=== PATIENT | male | born 1960 | race Caucasian/White ===

== ENCOUNTER 2017-06-02 09:26 | Emergency (ER) | payer SELFPAY ==
[2017-06-02] MEDS ORDERED: VERSED 5 MG/5 ML ONE ×2 (09:31→11:10)
[2017-06-02] MEDS ORDERED: EPINEPHRINE 1MG/ML AMP ONE (09:32)
[2017-06-02] MEDS ORDERED: CALCIUM CHLORIDE 10% 1000 MG IV ONE (09:33)
[2017-06-02] MEDS ORDERED: VERSED 5 MG/5 ML IV ONE ×3 (09:34→11:07)
[2017-06-02] MEDS ORDERED: SODIUM BICARBONATE 50 MEQ/50 ML ABBOJECT IV ONE (09:35)
[2017-06-02] MEDS ORDERED: Sodium Chloride 0.9% 250 ML 250 ML IV ONE ×2 (09:35→09:44)
[2017-06-02] MEDS ORDERED: Sodium Chloride 0.9% 1000 ML 1,000 ML IV STA ×2 (09:36→09:40)
[2017-06-02 09:37] LABS: Mean Cell Volume 99.6 fl (78-100); Mean Corpuscular Hemoglobin 32.8 pg (26-32); Mean Platelet Volume 10.6 fl (6-9.5); Platelet Count 147 K/mm3 (150-450); Red Blood Count 5.15 M/mm3 (4.1-5.6); Red Cell Distribution Width 13.8 % (11.5-14.0)
[2017-06-02] MEDS ORDERED: Versed 50 MG/ 10 Ml MDV ONE (09:44)
[2017-06-02] MEDS ORDERED: Sodium Chloride 0.9% 1000 ML 2,000 ML ONE (09:44)
[2017-06-02] MEDS ORDERED: Versed 50 MG/ 10 Ml MDV*** 50 MG in Sodium Chloride 0.9% 250 ML 240 ML IV PRN (09:49)
[2017-06-02] MEDS ORDERED: Vancomycin 1GM/ Ns 250ML*** 250 ML IV ONE ×2 (10:01→10:04)
[2017-06-02] MEDS ORDERED: Zosyn 3.375GM/100 Ml D5W 3.375 GM/100 ML IVPB IV STA (10:01)
[2017-06-02] MEDS ORDERED: Zosyn 3.375GM/100 Ml D5W 3.375 GM/100 ML IVPB IV ONE (10:04)
[2017-06-02 10:06] LABS: INR 1.1 (0.8-3.0); PROTIME 12.2 SECONDS (8.83-12.87)
[2017-06-02 10:06] LABS: BAND 17 % (0.0-2.0); Basophil 1 % (0.0-1.0); Eosinophil 2 % (0.00-3.0); Total Cells Counted 100
[2017-06-02 10:08] LABS: Platelet Estimate DECREASED (NORMAL)
[2017-06-02 10:09] LABS: PTT 46.6 SECONDS (24.1-36.1)
[2017-06-02 10:14] LABS: ALBUMIN 3.1 g/dL (3.4-5.0); BILIRUBIN,TOTAL 0.4 mg/dL (0.2-1.0); Total Protein 6.6 gm/dL (6.4-8.2)
[2017-06-02 10:22] LABS: ANION GAP 21.6 MEQ/L (5-15); Carbon Dioxide 17.5 mEq/L (21-32)
[2017-06-02 10:23] LABS: Potassium 2.8 mEq/L (3.5-5.1)
[2017-06-02] MEDS ORDERED: SUBLIMAZE 100 MCG/2 ML IV ONE ×2 (10:25→11:06)
[2017-06-02] MEDS ORDERED: POTASSIUM CHLORIDE 20 mEq IN WATER 100ML 100 ML IV ONE ×2 (10:25→10:27)
[2017-06-02 10:26] LABS: VBG BASE EXCESS -16.1 (-2.0-2.0); VBG HCO3- 20.4 meq/L (22-28); VBG HEMOGLOBIN 17.3; VBG O2 SATURATION 31.3 (95-100); VBG POTASSIUM 7.1 (3.5-5.1); VBG pH 6.88 (7.32-7.42)
[2017-06-02 10:27] LABS: Lactic Acid 8.4 (0.4-2.0)
[2017-06-02] MEDS ORDERED: SUBLIMAZE 100 MCG/2 ML ONE ×2 (10:27→11:10)
[2017-06-02 10:29] LABS: A-aADO2 213; ARTERIAL BLD GAS O2 SATURATION 98.1 % (95-100); ARTERIAL BLOOD GAS BASE EXCESS -15.7 (-2.0-2.0); ARTERIAL BLOOD GAS FIO2 100 %; ARTERIAL BLOOD GAS PO2 440 mmHg (75-100)
[2017-06-02 10:30] LABS: ARTERIAL BLOOD GAS pH 7.08 (7.35-7.45)
--- NOTE | 2017-06-02 10:46 | ERPHSYRPT ---
- History of Present Illness Time Seen by Provider: 06/02/17 09:31 Source: family, EMS Physician History: CC: cardiac arrest Hx: 56 y/o patient with no chronic illness and no local doctor. He has complained of epigastric abd pain for one year, unchanged. He was at home, got up to walk acroos living room, stated did not feel well, went back to love seat and collapsed. EMS was called. No fall or injury. Ex tried to put on floor for CPR but struggled to move him. On EMS arrival he had Vfib arrest. EMS had prolonged resuscitation with CPR, intubation, multi defib shocks (7-8), multiple epi, lidocaine, amiodarone, mag sulfate, narcan, IVF. Sugar was ok. He had left humeral IO. Converted to PEA while pulling into the ER. He lives at home with exwife. He has no hx of cardiac problems. Drank 3 beer yesterday. Remote drug use but none recent. Allergies/Adverse Reactions: UNOBTAINABLE Allergy (Unverified 11/27/14 21:59) Home Medications: Unobtainable [Unobtainable] 11/27/14 [History] Hx Tetanus, Diphtheria Vaccination/Date Given: No Hx Influenza Vaccination/Date Given: No Hx Pneumococcal Vaccination/Date Given: No - Review of Systems Respiratory: No Dyspnea Cardiac: No Chest Pain Abdominal/Gastrointestinal: No Vomiting, No Diarrhea All Other Systems: Unable due to condition - Past Medical History Pertinent Past Medical History: No - Past Surgical History Past Surgical History: No (UNKNOWN) - Social History Smoking Status: Current every day smoker How long have you smoked: 1 Exposure to second hand smoke: Yes Drug Use: marijuana Patient Lives Alone: No - Physical Exam General Appearance: other (arrived unrepsonsive with mid sized pupils) Ears, Nose, Throat Exam: moist mucous membranes Neck Exam: normal inspection Respiratory Exam: lungs clear (bilateral breath sounds with PPV) Extremity Exam: normal inspection Neurologic Exam: other (no volitional movement) Skin Exam: other (initially mottled, warm) - Radiology Exams cxr X-ray Interpretation: Reviewed by me (ETT ok, no PNTX) Ordered Tests: Active Orders 24 hr Category Date Time Status Catheter-[place] STAT Care 06/02/17 09:36 Active EKG-ER Only STAT Care 06/02/17 09:36 Active IV Insertion STAT Care 06/02/17 09:36 Active CHEST 1 VIEW (PORTABLE) Stat Exams 06/02/17 09:38 Taken ARTERIAL BLOOD GASES Stat Lab 06/02/17 09:48 Completed BLOOD CULTURE Stat Lab 06/02/17 09:45 Received CBC W DIFF Stat Lab 06/02/17 09:20 Results CMP Stat Lab 06/02/17 09:20 Completed ETHYL ALCOHOL Stat Lab 06/02/17 09:50 Completed LIPASE Stat Lab 06/02/17 09:20 Completed Lactic Acid Stat Lab 06/02/17 09:20 Results Manual Differential NC Stat Lab 06/02/17 09:20 Results PROTIME WITH INR Stat Lab 06/02/17 09:50 Completed PTT Stat Lab 06/02/17 09:50 Completed Pathologist Review Stat Lab 06/02/17 09:20 Results TROPONIN Q3H Lab 06/02/17 09:45 Completed TROPONIN Q3H Lab 06/02/17 12:45 Ordered TROPONIN Q3H Lab 06/02/17 15:45 Ordered TROPONIN Q3H Lab 06/02/17 18:45 Ordered TROPONIN Q3H Lab 06/02/17 21:45 Ordered UA W/RFX UR CULTURE Stat Lab 06/02/17 10:15 Received Urine Triage Profile Stat Lab 06/02/17 09:38 Ordered VENOUS BLOOD GAS Stat Lab 06/02/17 09:20 Completed Medication Summary Generic Name Dose Route Start Last Admin Trade Name Freq PRN Reason Stop Dose Admin Sodium Chloride 1,000 mls @ 999 mls/hr 06/02/17 09:40 Sodium Chloride 0.9% 1000 Ml IV 06/02/17 10:40 .Q1H1M STA Vancomycin HCl 250 mls @ 167 mls/hr 06/02/17 10:01 Vancomycin 1gm/ Ns 250ml IV 06/02/17 11:30 STAT ONE Potassium Chloride 100 mls @ 50 mls/hr 06/02/17 10:25 Potassium Chloride 20 Meq In Water 100ml IV 06/02/17 12:24 STAT ONE Midazolam HCl 50 mg/ Sodium 250 mls @ 20 mls/hr 06/02/17 09:49 Chloride IV 07/02/17 09:48 .[id number] PRN SEDATION Protocol 4 MG/HR Discontinued Medications Generic Name Dose Route Start Last Admin Trade Name Freq PRN Reason Stop Dose Admin Calcium Chloride 1,000 mg 06/02/17 09:33 Calcium Chloride 10% 1000 Mg IV 06/02/17 09:34 STAT ONE Epinephrine HCl Confirm 06/02/17 09:32 Epinephrine 1mg/Ml Amp Administered 06/02/17 09:33 Dose 1 mg .ROUTE .STK-MED ONE Fentanyl Citrate 100 mcg 06/02/17 10:25 Sublimaze 100 Mcg/2 Ml IV 06/02/17 10:26 STAT ONE Fentanyl Citrate Confirm 06/02/17 10:27 Sublimaze 100 Mcg/2 Ml Administered 06/02/17 10:28 Dose 100 mcg .ROUTE .STK-MED ONE Sodium Chloride Confirm 06/02/17 09:35 Sodium Chloride 0.9% 250 Ml Administered 06/02/17 09:36 Dose 250 mls @ ud IV .STK-MED ONE Sodium Chloride 1,000 mls @ 999 mls/hr 06/02/17 09:36 Sodium Chloride 0.9% 1000 Ml IV 06/02/17 10:36 .Q1H1M STA Sodium Chloride Confirm 06/02/17 09:44 Sodium Chloride 0.9% 1000 Ml Administered 06/02/17 09:45 Dose 2,000 mls @ ud .ROUTE .STK-MED ONE Sodium Chloride Confirm 06/02/17 09:44 Sodium Chloride 0.9% 250 Ml Administered 06/02/17 09:45 Dose 250 mls @ ud IV .STK-MED ONE Piperacillin Sod/Tazobactam Sod 3.375 gm in 100 mls @ 200 mls/hr 06/02/17 10: 01 06/02/17 10:08 Zosyn 3.375gm/100 Ml D5w IV 06/02/17 10:30 200 mls/hr STAT STA Administration Piperacillin Sod/Tazobactam Sod Confirm 06/02/17 10:04 Zosyn 3.375gm/100 Ml D5w Administered 06/02/17 10:05 Dose 3.375 gm in 100 mls @ ud IV .STK-MED ONE Vancomycin HCl Confirm 06/02/17 10:04 Vancomycin 1gm/ Ns 250ml Administered 06/02/17 10:05 Dose 250 mls @ ud IV .STK-MED ONE Potassium Chloride Confirm 06/02/17 10:27 Potassium Chloride 20 Meq In Water 100ml Administered 06/02/17 10:28 Dose 100 mls @ ud IV .STK-MED ONE Midazolam HCl Confirm 06/02/17 09:31 Versed 5 Mg/5 Ml Administered 06/02/17 09:32 Dose 5 mg .ROUTE .STK-MED ONE Midazolam HCl Confirm 06/02/17 09:44 Versed 50 Mg/ 10 Ml Mdv Administered 06/02/17 09:45 Dose 50 mg .ROUTE .STK-MED ONE Midazolam HCl 2.5 mg 06/02/17 09:34 Versed 5 Mg/5 Ml IV 06/02/17 09:35 STAT ONE Sodium Bicarbonate 50 meq 06/02/17 09:35 Sodium Bicarbonate 50 Meq/50 Ml Abboject IV 06/02/17 09:36 STAT ONE Lab/Rad Data: Laboratory Result Diagrams 06/02/17 09:20 06/02/17 09:20 Laboratory Results 06/02/17 06/02/17 06/02/17 Range/Units 09:50 09:50 09:48 WBC (4.0-10.5) K/mm3 RBC (4.1-5.6) M/mm3 Hgb (12.5-18.0) gm/dl Hct (42-50) % MCV (78-100) fl MCH (26-32) pg MCHC (32-36) g/dl RDW (11.5-14.0) % Plt Count (150-450) K/mm3 MPV (6-9.5) fl Segmented Neutrophils (36.-66.) % Band Neutrophils (0.0-2.0) % Lymphocytes (Manual) (24-44) % Monocytes (Manual) (0.0-12.0) % Eosinophils (Manual) (0.00-3.0) % Basophils (Manual) (0.0-1.0) % Differential Comment Platelet Estimate (NORMAL) Smear Path Review INR 1.10 (0.8-3.0) APTT 46.6 H (24.1-36.1) SECONDS Puncture Site LEFT RADIAL pCO2 48 H (35-45) mmHg pO2 440 H* (75-100) mmHg Base Excess -15.7 L (-2.0-2.0) O2 Saturation 94.6 (94-100) g/dF ABG pH 7.08 L* (7.35-7.45) ABG HCO3 14.2 L* (22-28) ABG O2 Sat (Measured) 98.1 (95-100) % Dain Test NOT APPLICABLE VBG pH (7.32-7.42) VBG pCO2 at Pat Temp (42-55) mm/Hg VBG pO2 at Pat Temp (25-40) mm/Hg VBG HCO3 (22-28) meq/L VBG O2 Sat (Imtiaz) (95-100) VBG Base Excess (-2.0-2.0) VBG Hemoglobin VBG Carboxyhemoglobin (0.0-6.9) % T HGB A-a Gradient 213 a/A Ratio 0.67 Hemoglobin 14.2 Carboxyhemoglobin 3.6 (0.0-6.9) % THgb Methemoglobin 0.0 L (1.4-1.5) % POC Potassium (3.5-5.1) Temperature 37.0 C POC O2 Flow Rate 100 % Sodium (136-145) mEq/L Potassium 3.0 L (3.5-5.1) mEq/L Chloride (98-107) mEq/L Carbon Dioxide (21-32) mEq/L Anion Gap (5-15) MEQ/L BUN (9-20) mg/dL Creatinine (0.55-1.30) mg/dl Estimated GFR ML/MIN Glucose (70-110) MG/DL Lactic Acid (0.4-2.0) Calcium (8.5-10.1) mg/dL Total Bilirubin (0.2-1.0) mg/dL AST (15-37) U/L ALT (12-78) U/L Alkaline Phosphatase (46-116) U/L Troponin I (0.000-0.056) ng/ml Serum Total Protein (6.4-8.2) gm/dL Albumin (3.4-5.0) g/dL Lipase (73-393) U/L Ethyl Alcohol < 0.010 (0.00-0.01) % 06/02/17 06/02/17 06/02/17 Range/Units 09:45 09:20 09:20 WBC (4.0-10.5) K/mm3 RBC (4.1-5.6) M/mm3 Hgb (12.5-18.0) gm/dl Hct (42-50) % MCV (78-100) fl MCH (26-32) pg MCHC (32-36) g/dl RDW (11.5-14.0) % Plt Count (150-450) K/mm3 MPV (6-9.5) fl Segmented Neutrophils (36.-66.) % Band Neutrophils (0.0-2.0) % Lymphocytes (Manual) (24-44) % Monocytes (Manual) (0.0-12.0) % Eosinophils (Manual) (0.00-3.0) % Basophils (Manual) (0.0-1.0) % Differential Comment Platelet Estimate (NORMAL) Smear Path Review INR (0.8-3.0) APTT (24.1-36.1) SECONDS Puncture Site pCO2 (35-45) mmHg pO2 (75-100) mmHg Base Excess (-2.0-2.0) O2 Saturation (94-100) g/dF ABG pH (7.35-7.45) ABG HCO3 (22-28) ABG O2 Sat (Measured) (95-100) % Dain Test VBG pH 6.88 L* (7.32-7.42) VBG pCO2 at Pat Temp 109 H* (42-55) mm/Hg VBG pO2 at Pat Temp 24 L (25-40) mm/Hg VBG HCO3 20.4 L (22-28) meq/L VBG O2 Sat (Imtiaz) 31.3 L (95-100) VBG Base Excess -16.1 L (-2.0-2.0) VBG Hemoglobin 17.3 VBG Carboxyhemoglobin 4.0 (0.0-6.9) % T HGB A-a Gradient a/A Ratio Hemoglobin Carboxyhemoglobin (0.0-6.9) % THgb Methemoglobin (1.4-1.5) % POC Potassium 7.1 H* (3.5-5.1) Temperature C POC O2 Flow Rate % Sodium (136-145) mEq/L Potassium (3.5-5.1) mEq/L Chloride (98-107) mEq/L Carbon Dioxide (21-32) mEq/L Anion Gap (5-15) MEQ/L BUN (9-20) mg/dL Creatinine (0.55-1.30) mg/dl Estimated GFR ML/MIN Glucose (70-110) MG/DL Lactic Acid 8.4 H (0.4-2.0) Calcium (8.5-10.1) mg/dL Total Bilirubin (0.2-1.0) mg/dL AST (15-37) U/L ALT (12-78) U/L Alkaline Phosphatase (46-116) U/L Troponin I 0.141 H* (0.000-0.056) ng/ml Serum Total Protein (6.4-8.2) gm/dL Albumin (3.4-5.0) g/dL Lipase (73-393) U/L Ethyl Alcohol (0.00-0.01) % 06/02/17 06/02/17 Range/Units 09:20 09:20 WBC 10.0 (4.0-10.5) K/mm3 RBC 5.15 (4.1-5.6) M/mm3 Hgb 16.9 (12.5-18.0) gm/dl Hct 51.3 H (42-50) % MCV 99.6 (78-100) fl MCH 32.8 H (26-32) pg MCHC 32.9 (32-36) g/dl RDW 13.8 (11.5-14.0) % Plt Count 147 L (150-450) K/mm3 MPV 10.6 H (6-9.5) fl Segmented Neutrophils 16 L (36.-66.) % Band Neutrophils 17 H (0.0-2.0) % Lymphocytes (Manual) 58 H (24-44) % Monocytes (Manual) 6 (0.0-12.0) % Eosinophils (Manual) 2 (0.00-3.0) % Basophils (Manual) 1 (0.0-1.0) % Differential Comment NORMAL Platelet Estimate DECREASED (NORMAL) Smear Path Review Pending INR (0.8-3.0) APTT (24.1-36.1) SECONDS Puncture Site pCO2 (35-45) mmHg pO2 (75-100) mmHg Base Excess (-2.0-2.0) O2 Saturation (94-100) g/dF ABG pH (7.35-7.45) ABG HCO3 (22-28) ABG O2 Sat (Measured) (95-100) % Dain Test VBG pH (7.32-7.42) VBG pCO2 at Pat Temp (42-55) mm/Hg VBG pO2 at Pat Temp (25-40) mm/Hg VBG HCO3 (22-28) meq/L VBG O2 Sat (Imtiaz) (95-100) VBG Base Excess (-2.0-2.0) VBG Hemoglobin VBG Carboxyhemoglobin (0.0-6.9) % T HGB A-a Gradient a/A Ratio Hemoglobin Carboxyhemoglobin (0.0-6.9) % THgb Methemoglobin (1.4-1.5) % POC Potassium (3.5-5.1) Temperature C POC O2 Flow Rate % Sodium 147 H (136-145) mEq/L Potassium 2.8 L* (3.5-5.1) mEq/L Chloride 111 H (98-107) mEq/L Carbon Dioxide 17.5 L (21-32) mEq/L Anion Gap 21.6 H (5-15) MEQ/L BUN 11 (9-20) mg/dL Creatinine 1.42 H (0.55-1.30) mg/dl Estimated GFR 55 ML/MIN Glucose 257 H (70-110) MG/DL Lactic Acid (0.4-2.0) Calcium 8.9 (8.5-10.1) mg/dL Total Bilirubin 0.40 (0.2-1.0) mg/dL AST 118 H (15-37) U/L ALT 109 H (12-78) U/L Alkaline Phosphatase 112 (46-116) U/L Troponin I (0.000-0.056) ng/ml Serum Total Protein 6.6 (6.4-8.2) gm/dL Albumin 3.1 L (3.4-5.0) g/dL Lipase 180 (73-393) U/L Ethyl Alcohol (0.00-0.01) % - Progress Progress Note: 06/02/17 10:48 Pt had femoral pulse present after initial PEA and CPR here. IVF NS bolus given 3L infused. He had initial low pH 6.88 and K 7.1. Ca and Bicarb given for K. Placed on ventilator. EKG shows irregular rhythm, RBBB, abnl qrs. Family here and apprised of condition. He needs critical care and they request [facility]. Called [facility] one call at [phone]. Spoke to Dr Scott hospitalist who accepts transfer to ICU at [facility] at 10: 00. 10:[address] Quevedo and sent EKG and troponin. He plans ICU admission and reassessment. Pt placed on Versed gtt. Fentanyl given. Vent placed. Lab K low so K rider initiated. Hospitalist advised cover with vanco and zosyn. Blood cultures sent. He is breathing spontaneously. Pupils midsized and reactive. Not following commands. Plan transfer to [facility] ICU. Counseled pt/family regarding: lab results, diagnosis, need for follow-up, rad results - Departure Time of Disposition: 10:55 Departure Disposition: Transfer ([facility] ICU) Clinical Impression: Cardiac arrest with ventricular fibrillation Condition: Critical Critical Care Time: Yes Critical Care Time(excluding separately billable procedures): 30-74 minutes
[2017-06-02] MEDS ORDERED: Sodium Chloride 0.9% 1000 ML 1,000 ML ONE (10:57)
[2017-06-02 11:05] LABS: A-aADO2 329; ARTERIAL BLD GAS O2 SATURATION 97.6 % (95-100); ARTERIAL BLD GAS TIDAL VOLUME 700 cc; ARTERIAL BLOOD GAS BASE EXCESS -10.5 (-2.0-2.0); ARTERIAL BLOOD GAS FIO2 80 %; ARTERIAL BLOOD GAS PO2 201 mmHg (75-100); ARTERIAL BLOOD GAS pH 7.28 (7.35-7.45)
[2017-06-02 11:07] LABS: Lactic Acid 3.8 (0.4-2.0)
[2017-06-02 12:43] LABS: Collection Type VOID
[2017-06-02 12:44] LABS: Bilirubin NEGATIVE (NEGATIVE); Blood 250 Ery/ul (0-5); COMPLETE URINE MICROSCOPIC? YES; Glucose 1000 mg/dL (NEGATIVE); Leukocyte Esterase NEGATIVE (NEGATIVE)
[2017-06-02 12:47] LABS: ADD URINE CULTURE? YES (NO); Bacteria FEW /HPF (NEGATIVE); Epithelial Cells FEW /HPF (FEW); WBC 0-2 /HPF (0-5)
[2017-06-02 17:32] VITALS: O2SAT 100
[2017-06-02 17:35] VITALS: BP 136/80; PULSE 94
[2017-06-02] MEDS ORDERED: Sodium Chloride 0.9% 1000 ML 1,000 ML IV SCH (17:45)
--- NOTE | 2017-06-02 20:20 | XRAY ---
Indication: Cardiac arrest. Comparison: November 27, 2014. Portable chest demonstrates new endotracheal tube tip 3 cm above the linh. Again mild bilateral perihilar interstitial opacities without consolidation or large effusion. Heart is not enlarged. Bony thorax intact.
== END 2017-06-02 11:25 | disposition short-term general hospital (02) ==
LOC: ED 09:26
DX: I46.9 Cardiac arrest, cause unspecified (principal); I49.01 Ventricular fibrillation
CPT/HCPCS: 36000; 36415; 36600; 51702; 71010; 80053; 80307; 81000; 82375; 82803; 82805; 83605; 83690; 84484; 85025; 85610; 85730; 87040; 87086; 93005; 93041; 94002; 94003; 94799; 96360; 96365; 96366; 96367; 99291; 99292; G0481; J0171; J2250; J2543; J3010; J3370; J3480

== ENCOUNTER 2021-08-02 15:43 | Emergency (ER) | payer MEDICARE ==
--- NOTE | 2021-08-02 15:51 | ERPHSYRPT ---
- History of Present Illness Time Seen by Provider: 08/02/21 15:51 Source: patient Exam Limitations: no limitations Physician History: This is a 61-year-old obese white male who has been coughing for a few days and is concerned that he may have broken a rib. Patient, in 2017, suffered a cardiac arrest and has a implantable LVAD in the left upper quadrant. Since he has been coughing the pain is significant in the left lower ribs. He does not have anterior chest pain as he had when he had a myocardial infarction. He does have history of diabetes and hypertension. He is on Coumadin. Lab work today shows an INR of 2.22. Patient is on chronic, daily hydrocodone which seems to help his cough. Patient was seen by his primary care physician today. Patient has not had a fever. He does not have any new shortness of breath. He has no nausea vomiting or diarrhea. Timing/Duration: day(s) (Few days) Severity: mild (To moderate tender left lower ribs) Associated Symptoms: No nausea, No vomiting, No abdominal pain, No shortness of breath, No chest pain Allergies/Adverse Reactions: No Known Drug Allergies Allergy (Verified 08/02/21 15:55) Home Medications: Amitriptyline HCl 25 mg [Elavil 25 mg] 1 ea DAILY 08/02/21 [History] Atorvastatin Calcium 1 ea DAILY 08/02/21 [History] Empagliflozin [Jardiance] 1 ea DAILY 08/02/21 [History] HydrALAzine HCL 25 MG TAB [Apresoline 25 MG TABLET] 1 ea DAILY 08/02/21 [History] Hydrocodone/Acetaminophen [Hydrocodone-Acetamin 10-325 mg] 1 ea DAILY 08/02/21 [History] Lisinopril 5 mg [Zestril 5 MG] 1 ea DAILY 08/02/21 [History] Potassium Chloride [K-Dur] 1 ea DAILY 08/02/21 [History] Semaglutide [Ozempic] 1 ea UD 08/02/21 [History] Torsemide 1 ea DAILY 08/02/21 [History] Umeclidinium Brm/Vilanterol Tr [Anoro Ellipta 62.5-25 Mcg INH] 1 ea DAILY 08/02/21 [History] Warfarin Sodium 1 ea DAILY 08/02/21 [History] Hx Tetanus, Diphtheria Vaccination/Date Given: No Hx Influenza Vaccination/Date Given: No Hx Pneumococcal Vaccination/Date Given: No Travel Risk - International Travel Have you traveled outside of the country in past 3 weeks: No - Coronavirus Screening Are you exhibiting any of the following symptoms?: No Close contact with a COVID-19 positive Pt in past 14-21 Days: No - Review of Systems Constitutional: No Symptoms Eyes: No Symptoms Ears, Nose, & Throat: No Symptoms Respiratory: Cough, Other (Left lower rib tenderness when coughing or palpation) Abdominal/Gastrointestinal: No Symptoms Genitourinary Symptoms: No Symptoms Musculoskeletal: No Symptoms Skin: No Symptoms Neurological: No Symptoms Psychological: No Symptoms Endocrine: No Symptoms Hematologic/Lymphatic: No Symptoms Immunological/Allergic: No Symptoms All Other Systems: Reviewed and Negative - Past Medical History Pertinent Past Medical History: Yes Neurological History: No Pertinent History Cardiac History: Myocardial Infarction ([place]) Respiratory History: No Pertinent History Endocrine Medical History: No Pertinent History Musculoskeletal History: Arthritis, Osteoporosis Other Medical History: Pt is poor historian. - Past Surgical History Past Surgical History: Yes (UNKNOWN) - Social History Smoking Status: Current every day smoker How long have you smoked: 1 Exposure to second hand smoke: Yes Drug Use: marijuana Patient Lives Alone: No - Nursing Vital Signs Nursing Vital Signs: Initial Vital Signs Pulse Rate 76 08/02/21 16:46 Respiratory Rate 22 08/02/21 16:46 O2 Sat by Pulse Oximetry 96 08/02/21 16:46 Pain Scale Pain Intensity 8 - Physical Exam General Appearance: no apparent distress, alert, anxiety, obese Eye Exam: PERRL/EOMI, eyes nml inspection Ears, Nose, Throat Exam: normal ENT inspection, moist mucous membranes Neck Exam: normal inspection, non-tender, supple, full range of motion Respiratory Exam: normal breath sounds, lungs clear, airway intact, other (Left lower rib tenderness to palpation no obvious deformity present.), No respiratory distress Cardiovascular Exam: regular rate/rhythm, normal heart sounds, normal peripheral pulses Gastrointestinal/Abdomen Exam: soft, normal bowel sounds, tenderness (To palpation subcostal margin.), other (The site of the implantable LVAD is clean dry and intact without evidence of any infection or abnormality.) Rectal Exam: not done Back Exam: normal inspection, normal range of motion, No CVA tenderness, No vertebral tenderness Extremity Exam: normal inspection, normal range of motion, pelvis stable Neurologic Exam: alert, oriented x 3, cooperative, 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 There is nonspecific IVCD with LAD in place.) Ordered Tests: Active Orders 24 hr Category Date Time Status EKG-ER Only STAT Care 08/02/21 16:21 Active IV Insertion STAT Care 08/02/21 16:21 Active CHEST WITHOUT CONTRAST [CT] Stat Exams 08/02/21 16:13 Completed TROPONIN Q3H Lab 08/02/21 15:55 Completed TROPONIN Q3H Lab 08/02/21 19:15 Ordered TROPONIN Q3H Lab 08/02/21 22:15 Ordered TROPONIN Q3H Lab 08/03/21 01:15 Ordered TROPONIN Q3H Lab 08/03/21 04:15 Ordered Medication Summary Discontinued Medications Generic Name Dose Route Start Last Admin Trade Name Freq PRN Reason Stop Dose Admin Morphine Sulfate 4 mg 08/02/21 16:48 08/02/21 16:58 Morphine Sulfate 4 Mg/Ml Injection IV 08/02/21 16:49 4 mg STAT ONE Administration Morphine Sulfate Confirm 08/02/21 16:57 Morphine Sulfate 4 Mg/Ml Injection Administered 08/02/21 16:58 Dose 4 mg .ROUTE .STK-MED ONE Ondansetron HCl 4 mg 08/02/21 16:48 08/02/21 16:58 Ondansetron Hcl 4 Mg/2 Ml Vial IV 08/02/21 16:49 4 mg STAT ONE Administration Ondansetron HCl Confirm 08/02/21 16:56 Ondansetron Hcl 4 Mg/2 Ml Vial Administered 08/02/21 16:57 Dose 4 mg .ROUTE .STK-MED ONE Lab/Rad Data: Laboratory Results 08/02/21 Range/Units 15:55 Troponin I < 0.012 (0.000-0.034) ng/mL - Progress Progress Note: 08/02/21 17:03 CAT scan of the chest shows no evidence of any acute rib fractures or acute intrathoracic abnormality. Limited left upper quadrant view shows no acute intraabdominal process in this region. Counseled pt/family regarding: lab results, need for follow-up, rad results - Departure Departure Disposition: Home Clinical Impression: Rib pain on left side Condition: Stable Critical Care Time: No Referrals: REMEDIOS MARTIN [Primary Care Provider] - Follow up/PCP as directed Additional Instructions: Continue your hydrocodone as prescribed. Follow-up with your central office inspector for further management.
--- NOTE | 2021-08-02 16:42 | XRAY ---
Indication: Left anterior rib pain. Multiple contiguous axial images obtained through the chest without contrast. Comparison: None Lungs demonstrate mild bilateral dependent atelectasis. No suspicious pulmonary mass/nodule, infiltrate, consolidation, or effusion. Heart not enlarged with previous CABG surgery and a left ventricular assist device producing beam artifact. Also left dual-lead pacemaker. Aorta is minimally arteriosclerotic without aneurysm. No pathologic mediastinal lymphadenopathy. Bony thorax intact with mild osteopenia, mild degenerative changes throughout the spine, and sternotomy wires. No suspicious bony lesions. Limited upper abdomen demonstrates mild diffuse fatty liver and moderate colonic fecal debris. Impression: 1. Beam artifact from LVAD. 2. Osteopenia, multilevel degenerative spondylosis, and fatty liver. 3. Remaining CT chest without contrast exam is negative.
[2021-08-02 16:48] VITALS: PULSE 76
[2021-08-02] MEDS ORDERED: Zofran 4 MG/2 ML VIAL IV ONE (16:48)
[2021-08-02] MEDS ORDERED: MORPHINE SULFATE 4 MG INJ IV ONE (16:48)
[2021-08-02] MEDS ORDERED: Zofran 4 MG/2 ML VIAL ONE (16:56)
[2021-08-02] MEDS ORDERED: MORPHINE SULFATE 4 MG INJ ONE (16:57)
[2021-08-02] MEDS ORDERED: NORCO 5/325 MG PO ONE (17:23)
[2021-08-02 17:24] VITALS: O2SAT 95
[2021-08-02] MEDS ORDERED: NORCO 5/325 MG ONE (17:24)
== END 2021-08-02 17:33 | disposition home or self-care (01) ==
LOC: ED 15:43
DX: R07.81 Pleurodynia (principal); R05.9 Cough, unspecified; Z95.811 Presence of heart assist device; I25.2 Old myocardial infarction; I10 Essential (primary) hypertension; Z72.0 Tobacco use; E11.8 Type 2 diabetes mellitus with unspecified complications; Z79.84 Long term (current) use of oral hypoglycemic drugs; Z79.01 Long term (current) use of anticoagulants; Z79.891 Long term (current) use of opiate analgesic
CPT/HCPCS: 36000; 36415; 71250; 80053; 83615; 83735; 84484; 85025; 85610; 93005; 96374; 96375; 99284; J2270; J2405; A9270-GY

== ENCOUNTER 2021-09-19 13:22 | Emergency (ER) | payer MEDICARE ==
--- NOTE | 2021-09-19 13:56 | ERPHSYRPT ---
- History of Present Illness Time Seen by Provider: 09/19/21 13:40 Source: patient Patient Subjective Stated Complaint: Dizziness Triage Nursing Assessment: Patient brought back to ED via w/c and assisted to bed with assist of 2. Patient A+O X3. Patient's skin pink, warm and dry. Patient complains of dizziness and breaking out in a cold sweat about one hour ago while sitting on the couch. Patient also complains of N/V. Patient has LVAD and called his coordinator and was told to come to ED for eval. Physician History: Patient is a 61-year-old male with a left ventricular assist device presents to our ED with complaints of dizziness and cold sweats that started approximately 1 hour prior to arrival. Patient states he just does not feel well. No chest pain. No nausea or vomiting. Patient states he felt diaphoretic. No rash. Symptoms are constant. Symptoms are moderate in intensity. No specific worsening improving factors. Patient states that he had a heart attack 4 years ago that caused significant left heart damage. Patient called his LVAD coordinator who advised him to come to our ED for an evaluation. Timing/Duration: today Severity: moderate Modifying Factors: Improves With: nothing Associated Symptoms: No abdominal pain, No shortness of breath, No cough, No chest pain, No fever, No loss of appetite, No syncope, No seizure, No weakness Allergies/Adverse Reactions: No Known Drug Allergies Allergy (Verified 09/19/21 13:32) Home Medications: Amitriptyline HCl 25 mg [Elavil 25 mg] 1 ea DAILY 08/02/21 [History] Atorvastatin Calcium 1 ea DAILY 08/02/21 [History] Empagliflozin [Jardiance] 1 ea DAILY 08/02/21 [History] HydrALAzine HCL 25 MG TAB [Apresoline 25 MG TABLET] 1 ea DAILY 08/02/21 [History] Hydrocodone/Acetaminophen [Hydrocodone-Acetamin 10-325 mg] 1 ea DAILY 08/02/21 [History] Lisinopril 5 mg [Zestril 5 MG] 1 ea DAILY 08/02/21 [History] Potassium Chloride [K-Dur] 1 ea DAILY 08/02/21 [History] Semaglutide [Ozempic] 1 ea UD 08/02/21 [History] Torsemide 1 ea DAILY 08/02/21 [History] Umeclidinium Brm/Vilanterol Tr [Anoro Ellipta 62.5-25 Mcg INH] 1 ea DAILY 08/02/21 [History] Warfarin Sodium 1 ea DAILY 08/02/21 [History] Hx Tetanus, Diphtheria Vaccination/Date Given: No Hx Influenza Vaccination/Date Given: Yes Hx Pneumococcal Vaccination/Date Given: No Immunizations Up to Date: Yes Travel Risk - International Travel Have you traveled outside of the country in past 3 weeks: No - Coronavirus Screening Are you exhibiting any of the following symptoms?: No Close contact with a COVID-19 positive Pt in past 14-21 Days: No - Vaccine Status Have you recieved a Covid-19 vaccination: Yes 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 - Review of Systems Constitutional: No Symptoms, No Fever, No Chills Eyes: No Symptoms Ears, Nose, & Throat: No Symptoms Respiratory: No Symptoms, No Cough, No Dyspnea Cardiac: No Symptoms, No Chest Pain, No Edema, No Syncope Abdominal/Gastrointestinal: No Symptoms, No Abdominal Pain, No Nausea, No Vomiting, No Diarrhea Genitourinary Symptoms: No Symptoms, No Dysuria Musculoskeletal: No Symptoms, No Back Pain, No Neck Pain Skin: No Symptoms, No Rash Neurological: No Symptoms, No Dizziness, No Focal Weakness, No Sensory Changes Psychological: No Symptoms Endocrine: No Symptoms Hematologic/Lymphatic: No Symptoms Immunological/Allergic: No Symptoms All Other Systems: Reviewed and Negative - Past Medical History Pertinent Past Medical History: Yes Neurological History: No Pertinent History Cardiac History: Myocardial Infarction (ME) Respiratory History: No Pertinent History Endocrine Medical History: No Pertinent History Musculoskeletal History: Arthritis, Osteoporosis Other Medical History: Pt is poor historian. - Past Surgical History Past Surgical History: Yes (UNKNOWN) Cardiac: Cardiac Catheterization, Cardiac Stent, Internal Defibrillator, Pacemaker Other Surgical History: LVAD - Social History Smoking Status: Former smoker How long have you smoked: 1 Exposure to second hand smoke: Yes Drug Use: none Patient Lives Alone: No - Nursing Vital Signs Nursing Vital Signs: Initial Vital Signs Temperature 95.8 F 09/19/21 13:32 Pulse Rate 67 09/19/21 13:32 Respiratory Rate 18 09/19/21 13:32 Blood Pressure 108/83 09/19/21 13:32 O2 Sat by Pulse Oximetry 95 01/17/22 13:32 Pain Scale Pain Intensity 0 - Physical Exam General Appearance: no apparent distress, alert, other (Patient resting comfortably. Patient sleeping. Patient easily arousable and answers questions appropriately. Patient in no acute distress.) Eye Exam: PERRL/EOMI, eyes nml inspection Ears, Nose, Throat Exam: normal ENT inspection, TMs normal, pharynx normal, moist mucous membranes, other (Dry tongue and dry oral mucous membranes. Patient appears dehydrated) Neck Exam: normal inspection, non-tender, supple, full range of motion Respiratory Exam: normal breath sounds, lungs clear, airway intact, No respiratory distress Cardiovascular Exam: regular rate/rhythm, normal heart sounds, other (Patient has an LVAD. No peripheral pulses observed. Machinelike humming noise observed consistent with LVAD function.) Gastrointestinal/Abdomen Exam: soft, normal bowel sounds, No tenderness, No mass Back Exam: normal inspection, normal range of motion, No CVA tenderness, No vertebral tenderness Extremity Exam: normal inspection, normal range of motion, pelvis stable Neurologic Exam: alert, oriented x 3, cooperative, normal mood/affect, sensation nml, No motor deficits Skin Exam: normal color, warm, dry, No rash Lymphatic Exam: No adenopathy SpO2 Interpretation: normal SpO2: 95 O2 Delivery: Room Air - Course Nursing assessment & vital signs reviewed: Yes EKG Interpreted by Me: RATE (69), Sinus Rhythm, NORMAL AXIS, NORMAL INTERVALS (Patient has an LVAD) - Radiology Exams Chest X-ray Interpretation: Teleradiologist Report (Right lower lobe infiltrate possible atelectasis. Bony thorax intact. LVAD observed.) - CT Exams Head CT Interpretation: Tele-radiologist Report (Continued negative CT head compared to 08/07/2019.) Ordered Tests: Active Orders 24 hr Category Date Time Status [facility] STAT Care 09/19/21 13:41 Active EKG-ER Only STAT Care 09/19/21 13:40 Active IV Insertion STAT Care 09/19/21 13:40 Active Pulse Oximetry (ED) STAT Care 09/19/21 13:40 Active CHEST 1 VIEW (PORTABLE) Stat Exams 09/19/21 13:41 Completed HEAD WITHOUT CONTRAST [CT] Stat Exams 09/19/21 20:00 Taken CBC W DIFF Stat Lab 09/19/21 14:06 Completed CMP Stat Lab 09/19/21 14:06 Completed NT PRO BNP Stat Lab 09/19/21 14:06 Completed POCT GLUCOSE Stat Lab 09/19/21 13:42 Completed TROPONIN Q3H Lab 09/19/21 14:06 Completed TROPONIN Q3H Lab 09/19/21 16:58 Completed TROPONIN Q3H Lab 09/19/21 19:45 Ordered TROPONIN Q3H Lab 09/19/21 22:45 Ordered TROPONIN Q3H Lab 09/20/21 01:45 Ordered UA W/RFX UR CULTURE Stat Lab 09/19/21 20:32 Ordered Medication Summary Discontinued Medications Generic Name Dose Route Start Last Admin Trade Name Freq PRN Reason Stop Dose Admin Vancomycin HCl 1 gm in 200 mls @ 125 mls/hr 09/19/21 15:35 09/19/21 17:55 Vancomycin 1 Gram/200 Ml Bag IV 09/19/21 17:10 Infused STAT ONE Infusion Vancomycin HCl Confirm 09/19/21 16:02 Vancomycin 1 Gram/200 Ml Bag Administered 09/19/21 16:03 Dose 1 gm in 200 mls @ ud IV .STK-MED ONE Potassium Chloride 40 meq 09/19/21 15:30 09/19/21 16:03 Potassium Chloride 10 Meq Tablet PO 09/19/21 15:31 40 meq STAT ONE Administration Potassium Chloride Confirm 09/19/21 16:02 Potassium Chloride 10 Meq Tablet Administered 09/19/21 16:03 Dose 40 meq PO .STK-MED ONE Lab/Rad Data: Laboratory Result Diagrams 09/19/21 14:06 09/19/21 14:06 Laboratory Results 09/19/21 09/19/21 09/19/21 Range/Units 16:58 14:06 14:06 WBC (4.0-10.5) K/mm3 RBC (4.1-5.6) M/mm3 Hgb (12.5-18.0) gm/dl Hct (42-50) % MCV (78-100) fl MCH (26-32) pg MCHC (32-36) g/dl RDW (11.5-14.0) % Plt Count (150-450) K/mm3 MPV (7.5-11.0) fl Gran % (36.0-66.0) % Eos # (Auto) (0-0.5) Absolute Lymphs (auto) (1.0-4.6) Absolute Monos (auto) (0.0-1.3) Lymphocytes % (24.0-44.0) % Monocytes % (0.0-12.0) % Eosinophils % (0.00-5.0) % Basophils % (0.0-0.4) % Absolute Granulocytes (1.4-6.9) Basophils # (0-0.4) Sodium 135 L (137-145) mmol/L Potassium 3.3 L (3.5-5.1) mmol/L Chloride 97 L (98-107) mmol/L Carbon Dioxide 27 (22-30) mmol/L Anion Gap 14.1 (5-15) MEQ/L BUN 20 (9-20) mg/dL Creatinine 1.07 (0.66-1.25) mg/dL Estimated GFR > 60.0 ML/MIN Glucose 147 H (74-106) mg/dL POC Glucometer (74 to 106) mg/dL Calcium 8.9 (8.4-10.2) mg/dL Total Bilirubin 1.00 (0.2-1.3) mg/dL AST 40 (17-59) U/L ALT 42 (0-50) U/L Alkaline Phosphatase 103 (38-126) U/L Troponin I < 0.012 < 0.012 (0.000-0.034) ng/mL NT-Pro-B Natriuret Pep 371 (0-900) pg/mL Serum Total Protein 7.1 (6.3-8.2) g/dL Albumin 4.1 (3.5-5.0) g/dL Influenza Type A Ag (NEGATIVE) Influenza Type B Ag (NEGATIVE) RSV (PCR) (Negative) SARS-CoV-2 (PCR) (NEGATIVE) 09/19/21 09/19/21 09/19/21 Range/Units 14:06 13:47 13:42 WBC 10.6 H (4.0-10.5) K/mm3 RBC 3.76 L (4.1-5.6) M/mm3 Hgb 13.8 (12.5-18.0) gm/dl Hct 40.0 L (42-50) % MCV 106.4 H (78-100) fl MCH 36.7 H (26-32) pg MCHC 34.5 (32-36) g/dl RDW 14.9 H (11.5-14.0) % Plt Count 212 (150-450) K/mm3 MPV 9.5 (7.5-11.0) fl Gran % 83.3 H (36.0-66.0) % Eos # (Auto) 0.18 (0-0.5) Absolute Lymphs (auto) 0.60 L (1.0-4.6) Absolute Monos (auto) 0.94 (0.0-1.3) Lymphocytes % 5.6 L (24.0-44.0) % Monocytes % 8.9 (0.0-12.0) % Eosinophils % 1.7 (0.00-5.0) % Basophils % 0.5 (0.0-0.4) % Absolute Granulocytes 8.85 H (1.4-6.9) Basophils # 0.05 (0-0.4) Sodium (137-145) mmol/L Potassium (3.5-5.1) mmol/L Chloride (98-107) mmol/L Carbon Dioxide (22-30) mmol/L Anion Gap (5-15) MEQ/L BUN (9-20) mg/dL Creatinine (0.66-1.25) mg/dL Estimated GFR ML/MIN Glucose (74-106) mg/dL POC Glucometer 130 H (74 to 106) mg/dL Calcium (8.4-10.2) mg/dL Total Bilirubin (0.2-1.3) mg/dL AST (17-59) U/L ALT (0-50) U/L Alkaline Phosphatase (38-126) U/L Troponin I (0.000-0.034) ng/mL NT-Pro-B Natriuret Pep (0-900) pg/mL Serum Total Protein (6.3-8.2) g/dL Albumin (3.5-5.0) g/dL Influenza Type A Ag NEGATIVE (NEGATIVE) Influenza Type B Ag NEGATIVE (NEGATIVE) RSV (PCR) NEGATIVE (Negative) SARS-CoV-2 (PCR) NEGATIVE (NEGATIVE) - Progress Progress: improved Progress Note: Patient reassessed. He feels much better at this time. Patient is COVID- negative. Mild hypokalemia. We will replace potassium. We notified patient's LVAD coordinator who is currently working on obtaining a bed for transfer. We will continue to monitor patient. 09/19/21 15:28 We spoke to LVAD coordinator. They are continually working on obtaining a bed. X-ray reveals right lower lobe infiltrate versus atelectasis. COVID test negative. In light of patient's LVAD we will cover for possible pneumonia. Per LVAD coordinator they request 1 g of vancomycin. Patient appears dehydrated however they prefer vancomycin infusion before fluids at this time. Potassium depressed at 3.3. Oral potassium replacement ordered. 09/19/21 15:34 09/19/21 15:35 Patient was accepted by the LVAD team at [facility] at approximately 8 PM. The accepting provider was Catherine Dodson nurse practitioner for the LVAD team. Plan of care discussed with patient. He agrees to transfer to [facility] for further evaluation and treatment. Patient voices no other complaints or concerns at this time. Portions of this note were created with voice recognition technology. There may be grammatical, spelling, punctuation or sound alike errors 09/19/21 20:48 CT head was ordered per the request of the receiving LVAD team/Catherine Dodson. Patient had some dizziness earlier in the day. Neurologic exam normal. CT head is negative for acute intracranial pathology. 09/19/21 20:50 We discussed transfer via BLS ground with receiving team. They agree that BLS transfer would be appropriate. 09/19/21 20:51 LVAD monitor is not expressing any warning codes. 09/19/21 20:57 Counseled pt/family regarding: lab results, diagnosis, rad results - Departure Departure Disposition: Home Clinical Impression: Hypokalemia, Dehydration, Pneumonia, Dizziness Condition: Stable Critical Care Time: No Referrals: REMEDIOS MARTIN [Primary Care Provider] - Follow up/PCP as directed
[2021-09-19 14:09] LABS: Absolute Neutrophil Ct (ANC) 8.85 (1.4-6.9); Basophil (Absolute #) 0.05 (0-0.4); Eosinophil % 1.7 % (0.00-5.0); Eosinophil (Absolute #) 0.18 (0-0.5); Hemoglobin 13.8 gm/dl (12.5-18.0); Lymphocytes % 5.6 % (24.0-44.0); Mean Cell Volume 106.4 fl (78-100); Mean Corpuscular Hemoglobin 36.7 pg (26-32); Mean Corpuscular Hgb Concent. 34.5 g/dl (32-36); Mean Platelet Volume 9.5 fl (7.5-11.0); Monocyte (Absolute #) 0.94 (0.0-1.3); Monocytes % 8.9 % (0.0-12.0); Neutrophil % 83.3 % (36.0-66.0); Platelet Count 212 K/mm3 (150-450); Red Blood Count 3.76 M/mm3 (4.1-5.6); Red Cell Distribution Width 14.9 % (11.5-14.0); White Blood Count 10.6 K/mm3 (4.0-10.5)
--- NOTE | 2021-09-19 14:21 | XRAY ---
Indication: Cough and dizziness. Suspect Covid 19. Comparison: July 02, 2020. Portable apical lordotic chest less inflated with new minimal medial right base infiltrate versus atelectasis. Heart not enlarged again with LVAD. Bony thorax intact again with mild degenerative changes and sternotomy wires.
[2021-09-19 14:40] LABS: ALBUMIN 4.1 g/dL (3.5-5.0); ALKALINE PHOSPHATASE 103 U/L (38-126); ANION GAP 14.1 MEQ/L (5-15); BLOOD UREA NITROGEN 20 mg/dL (9-20); CHLORIDE 97 mmol/L (98-107); Calcium 8.9 mg/dL (8.4-10.2); Carbon Dioxide 27 mmol/L (22-30); Creatinine 1 1.07 mg/dL (0.66-1.25); EST GLOMERULAR FILTRATION RATE > 60.0 ML/MIN; Glucose 147 mg/dL (74-106); Potassium 3.3 mmol/L (3.5-5.1); SGOT/AST 40 U/L (17-59); SGPT/ALT 42 U/L (0-50); SODIUM 135 mmol/L (137-145); Total Protein 7.1 g/dL (6.3-8.2)
[2021-09-19 14:49] LABS: INFLUENZA A NEGATIVE (NEGATIVE); INFLUENZA B NEGATIVE (NEGATIVE); RESPIRATORY SYNCTIAL VIRUS NEGATIVE (Negative); SARS-CoV-2 Xpert Express NEGATIVE (NEGATIVE)
[2021-09-19 14:49] LABS: NT PRO BNP 371 pg/mL (0-900)
[2021-09-19] MEDS ORDERED: Klor Con 10 MEQ PO ONE ×2 (15:30→16:02)
[2021-09-19] MEDS ORDERED: VANCOMYCIN 1 GRAM/200 ML BAG 1 GM/200 ML PIGGYBACK IV ONE ×2 (15:35→16:02)
[2021-09-19 20:59] LABS: Appearance CLEAR (CLEAR); Bilirubin NEGATIVE (NEGATIVE); Blood NEGATIVE Ery/ul (0-5); Glucose >=500 mg/dL (NEGATIVE); Ketones NEGATIVE (NEGATIVE); Leukocyte Esterase NEGATIVE (NEGATIVE); Nitrite NEGATIVE (NEGATIVE); Protein,Urine Dip NEGATIVE (Negative); Specific Gravity 1.013 (1.005-1.025); Urobilinogen NEGATIVE mg/dL (0-1)
[2021-09-19 21:11] VITALS: BP 113/87; PULSE 80; O2SAT 97
--- NOTE | 2021-09-20 08:44 | XRAY ---
Indication: Dizziness. Multiple contiguous axial images obtained through the head without contrast. Comparison: August 07, 2019. Age-appropriate global atrophy. No acute intracranial hemorrhage, abnormal extra-axial fluid collection, or mass effect. Fourth ventricle is midline without hydrocephalus. Torres-white matter differentiation preserved. Bony calvarium intact. Visualized paranasal sinuses and mastoid air cells are clear. Impression: Continued negative CT head without contrast exam.
== END 2021-09-19 21:56 | disposition short-term general hospital (02) ==
LOC: ED 13:22
DX: E87.6 Hypokalemia (principal); E86.0 Dehydration; J18.9 Pneumonia, unspecified organism; R42 Dizziness and giddiness; Z79.01 Long term (current) use of anticoagulants; Z79.891 Long term (current) use of opiate analgesic; Z79.899 Other long term (current) drug therapy
CPT/HCPCS: 0241U; 36000; 36415; 70450; 71045; 80053; 81001; 82947; 83880; 84484; 85025; 93005; 93041; 94760; 96365; 99285; A9270-GY; J3370

== ENCOUNTER 2022-04-10 18:17 | Emergency (ER) | payer MEDICARE ==
[2022-04-10] MEDS ORDERED: TYLENOL EXTRA STRENGTH 500 MG PO PRN (18:33)
[2022-04-10] MEDS ORDERED: TYLENOL EXTRA STRENGTH 500 MG ONE (18:36)
[2022-04-10] MEDS ORDERED: TYLENOL EXTRA STRENGTH 500 MG PO STA (18:39)
[2022-04-10] MEDS ORDERED: PIPERACILLIN/TAZOBACTAM 3.375 GM in Sodium Chloride 100ML MINI-BAG PLUS 100 ML IV ONE (19:02)
[2022-04-10] MEDS ORDERED: Sodium Chloride 100ML MINI-BAG PLUS 100 ML IV ONE (19:07)
[2022-04-10] MEDS ORDERED: PIPERACILLIN/TAZOBACTAM IV ONE (19:07)
[2022-04-10 19:21] LABS: Absolute Neutrophil Ct (ANC) 10.94 x10^3/uL (1.4-6.9); Basophil (Absolute #) 0.03 x10^3/uL (0-0.4); Eosinophil % 0.2 % (0.00-5.0); Eosinophil (Absolute #) 0.03 x10^3/uL (0-0.5); Hematocrit 32.5 % (42-50); Lymphocyte (Absolute #) 0.38 x10^3/uL (1.0-4.6); Lymphocytes % 3.1 % (24.0-44.0); Mean Cell Volume 97.9 fL (78-100); Mean Corpuscular Hemoglobin 27.1 pg (26-32); Mean Corpuscular Hgb Concent. 27.7 g/dL (32-36); Mean Platelet Volume 10.4 fL (7.5-11.0); Monocyte (Absolute #) 0.78 x10^3/uL (0.0-1.3); Monocytes % 6.4 % (0.0-12.0); Neutrophil % 89.5 % (36.0-66.0); Platelet Count 179 x10^3/uL (150-450); Red Blood Count 3.32 x10^6/uL (4.1-5.6); White Blood Count 12.2 x10^3/uL (4.0-10.5)
[2022-04-10 19:24] LABS: VBG BASE EXCESS 2.3 (-2.0-2.0); VBG CARBOXYHEMOGLOBIN 3.7 % T HGB (0.0-6.9); VBG HCO3- 23.9 meq/L (22-28); VBG HEMOGLOBIN 9.4; VBG O2 SATURATION 60.1 (95-100); VBG POTASSIUM 3.5 (3.5-5.1); VBG pH 7.54 (7.32-7.42)
[2022-04-10 19:35] LABS: INR 1.36 (0.8-3.0); PTT 36.8 SECONDS (25.1-36.5)
[2022-04-10 19:45] LABS: ALBUMIN 3.6 g/dL (3.5-5.0); ANION GAP 11.9 MEQ/L (5-15); BILIRUBIN,TOTAL 1.5 mg/dL (0.2-1.3); Calcium 8.5 mg/dL (8.4-10.2); Creatinine 1 1.36 mg/dL (0.66-1.25); Potassium 3.5 mmol/L (3.5-5.1); TROPONIN 0.025 ng/mL (0.000-0.034); Total Protein 6.7 g/dL (6.3-8.2)
[2022-04-10 19:47] VITALS: BP 88/69
--- NOTE | 2022-04-10 19:49 | ERPHSYRPT ---
- History of Present Illness Source: patient, EMS Exam Limitations: other (Poor historian) Patient Subjective Stated Complaint: PT HERE FOR INCREASE SOB TODAY AFTER HAVING A SCOPE TODAY,UNSURE OF WHAT TYPE OF SCOPE HE THINKDS AN EGD, PT HAS HX OF LVAD. Triage Nursing Assessment: PT ALERT, SOB, O2 2 LNC APPLIED. EDEMA TO LOWER LEGS ,DENIES ANY PAIN.STATES HE WAS OUTSIDE TODAY WORKING, Physician History: 61 yo wm w h/o ID/Stents/LVAD/CABG/AICD who had an EGD today at [facility] presents w dyspnea/nausea/diaphoresis/fever x 90 minutes. Pt denies chest pain/cough/coryza/melena/hematochezia. He states that symptoms started while cutting neighbors grass. Timing/Duration: other (90 minutes) Activities at Onset: other (Cutting grass) Severity of Dyspnea-Max: moderate Severity of Dyspnea-Current: moderate Possible Cause: occasional episodes Modifying Factors: Improves With: activity (Makes worse) Allergies/Adverse Reactions: valsartan Allergy (Verified 04/10/22 18:35) Home Medications: Amitriptyline HCl 25 mg [Amitriptyline 25 mg Tablet] 1 ea DAILY 08/02/21 [History] Atorvastatin Calcium 1 ea DAILY 08/02/21 [History] Empagliflozin [Jardiance] 1 ea DAILY 08/02/21 [History] HydrALAzine HCL 25 MG TAB [Apresoline 25 MG TABLET] 1 ea TID 08/02/21 [History] Hydrocodone/Acetaminophen [Hydrocodone-Acetamin 10-325 mg] 1 ea QID 08/02/21 [History] Semaglutide [Ozempic] 2 mg UD 08/02/21 [History] Torsemide 20 mg BID 08/02/21 [History] Umeclidinium Brm/Vilanterol Tr [Anoro Ellipta 62.5-25 Mcg INH] 1 ea DAILY 08/02/21 [History] Warfarin Sodium 10 mg DAILY 08/02/21 [History] Albuterol Sulfate [Albuterol Sulfate Hfa] 2 ea DAILY 04/10/22 [History] Aspirin 81 gm Chew [Baby Aspirin 81 mg Chew] 81 mg PO DAILY 04/10/22 [History] Calcium Carbonate [Oyster Shell Calcium] 1 ea DAILY 04/10/22 [History] Digoxin 0.125 mg PO DAILY 04/10/22 [History] Enoxaparin Sodium [Lovenox] 1 ea DAILY 04/10/22 [History] Gabapentin [Neurontin] 1 ea TID 04/10/22 [History] Hx Tetanus, Diphtheria Vaccination/Date Given: No Hx Influenza Vaccination/Date Given: Yes Hx Pneumococcal Vaccination/Date Given: No Immunizations Up to Date: Yes Travel Risk - International Travel Have you traveled outside of the country in past 3 weeks: No - Coronavirus Screening Are you exhibiting any of the following symptoms?: No Close contact with a COVID-19 positive Pt in past 14-21 Days: No - Vaccine Status Have you recieved a Covid-19 vaccination: Yes Target Setter: Moderna - Vaccination Dates Date of 2cond Vaccination (if applicable): ? - Review of Systems Constitutional: No Symptoms, Fever, Chills Eyes: No Symptoms Ears, Nose, & Throat: No Symptoms Respiratory: Dyspnea, Dyspnea on Exertion (BARRERA) Cardiac: No Symptoms, No Chest Pain Abdominal/Gastrointestinal: No Symptoms, Nausea, No Vomiting, No Diarrhea Genitourinary Symptoms: No Symptoms Musculoskeletal: No Symptoms Skin: No Symptoms Neurological: No Symptoms Psychological: No Symptoms Endocrine: No Symptoms Hematologic/Lymphatic: No Symptoms Immunological/Allergic: No Symptoms - Past Medical History Pertinent Past Medical History: Yes Neurological History: No Pertinent History Cardiac History: Coronary Artery Disease, Myocardial Infarction (ID) Respiratory History: COPD, Emphysema Endocrine Medical History: No Pertinent History Musculoskeletal History: Arthritis, Osteoporosis Other Medical History: Pt is poor historian. LVD - Past Surgical History Past Surgical History: Yes (UNKNOWN) Cardiac: Cardiac Catheterization, Cardiac Stent, Internal Defibrillator, Pacemaker Other Surgical History: LVAD - Social History Smoking Status: Current some day smoker How long have you smoked: 1 Exposure to second hand smoke: Yes Drug Use: none Patient Lives Alone: No - Nursing Vital Signs Nursing Vital Signs: Initial Vital Signs Respiratory Rate 22 04/10/22 18:28 O2 Sat by Pulse Oximetry 86 L 04/10/22 18:28 Pain Scale Pain Intensity 8 Hypoxic - Physical Exam General Appearance: moderate distress (Exam limited by very loud LVAD) Eye Exam: PERRL/EOMI, eyes nml inspection Ears, Nose, Throat Exam: hearing grossly normal, normal ENT inspection, normal pharynx Neck Exam: normal inspection, non-tender, supple Respiratory Exam: respiratory distress (Mild), crackles/rales (Rales L base), wheezing (Scattered wheezes) Cardiovascular/Chest Exam: tachycardia (audible LVAD) Abdominal/Gastrointestinal Exam: soft, normal bowel sounds Extremity Exam: swelling (Mild B) Neurologic Exam: alert, oriented x 3, cooperative, tutor coordinator II-XII nml as tested, normal mood/affect, sensation nml Skin Exam: normal color, diaphoresis Lymphatic Exam: No adenopathy SpO2 Interpretation: borderline oxygenation SpO2: 96 O2 Delivery: Nasal Cannula - Course EKG Interpreted by Me: RATE (Sinus Tach/IVCD/LVAD) - Radiology Exams Chest X-ray Interpretation: Interpreted by me (LLL infiltrate) Ordered Tests: Active Orders 24 hr Category Date Time Status EKG-ER Only STAT Care 04/10/22 18:40 Completed CHEST 1 VIEW (PORTABLE) Stat Exams 04/10/22 18:40 Taken BLOOD CULTURE Stat Lab 04/10/22 19:10 Received CBC W DIFF Stat Lab 04/10/22 19:05 Completed CMP Stat Lab 04/10/22 19:05 Completed Lactic Acid Stat Lab 04/10/22 19:15 Completed NT PRO BNP Stat Lab 04/10/22 19:05 Completed PROTIME WITH INR Stat Lab 04/10/22 19:05 Completed PTT Stat Lab 04/10/22 19:05 Completed TROPONIN Stat Lab 04/10/22 19:05 Completed VBG [VENOUS BLOOD GAS] Stat Lab 04/10/22 19:15 Completed Medication Summary Discontinued Medications Generic Name Dose Route Start Last Admin Trade Name Lelo PRN Reason Stop Dose Admin Acetaminophen 1,000 mg 04/10/22 18:33 04/10/22 18:43 Acetaminophen 500 Mg Tablet PO 05/10/22 18:32 1,000 mg Q4H PRN PRN Administration HEADACHE Acetaminophen 1,000 mg 04/10/22 18:39 04/10/22 18:42 Acetaminophen 500 Mg Tablet PO 04/10/22 18:40 1,000 mg STAT STA Administration Acetaminophen Confirm 04/10/22 18:36 Acetaminophen 500 Mg Tablet Administered 04/10/22 18:37 Dose 1,000 mg .ROUTE .STK-MED ONE Piperacillin Sod/Tazobactam 100 mls @ 200 mls/hr 04/10/22 19:02 04/10/22 19:08 Sod 3.375 gm/ Sodium Chloride IV 04/10/22 19:31 200 mls/hr STAT ONE Administration Sodium Chloride Confirm 04/10/22 19:07 Sodium Chloride 100ml Mini-Bag Plus Administered 04/10/22 19:08 Dose 100 mls @ ud IV .STK-MED ONE Azithromycin 500 mg in 250 mls @ 250 mls/hr 04/10/22 23:20 04/10/22 23:25 Zithromax 500 Mg/ 250 Ml Nacl Premix IV 04/11/22 00:19 250 mls/hr STAT STA 250 mls/hr Administration Azithromycin Confirm 04/10/22 23:22 Zithromax 500 Mg/ 250 Ml Nacl Premix Administered 04/10/22 23:23 Dose 500 mg in 250 mls @ ud IV .STK-MED ONE Piperacillin Sod/Tazobactam Sod Confirm 04/10/22 19:07 Piperacillin/Tazobactam Sodium 3.375 Gm Vial Administered 04/10/22 19:08 Dose 3.375 gm IV .STK-MED ONE Lab/Rad Data: Laboratory Result Diagrams 04/10/22 19:05 04/10/22 19:05 Laboratory Results 04/10/22 04/10/22 04/10/22 Range/Units 19:15 19:15 19:05 WBC (4.0-10.5) x10^3/uL RBC (4.1-5.6) x10^6/uL Hgb (12.5-18.0) g/dL Hct (42-50) % MCV (78-100) fL MCH (26-32) pg MCHC (32-36) g/dL RDW (11.5-14.0) % Plt Count (150-450) x10^3/uL MPV (7.5-11.0) fL Gran % (36.0-66.0) % Immature Gran % (Auto) (0.00-0.4) % Nucleat RBC Rel Count (0.00-0.1) % Eos # (Auto) (0-0.5) x10^3/uL Immature Gran # (Auto) (0.00-0.03) x10^3u/L Absolute Lymphs (auto) (1.0-4.6) x10^3/uL Absolute Monos (auto) (0.0-1.3) x10^3/uL Absolute Nucleated RBC (0.00-0.01) x10^3u/L Lymphocytes % (24.0-44.0) % Monocytes % (0.0-12.0) % Eosinophils % (0.00-5.0) % Basophils % (0.0-0.4) % Absolute Granulocytes (1.4-6.9) x10^3/uL Basophils # (0-0.4) x10^3/uL PT (9.4-12.5) SECONDS INR (0.8-3.0) APTT (25.1-36.5) SECONDS pO2/FiO2 Ratio 36.0 % VBG pH 7.54 H (7.32-7.42) VBG pCO2 at Pat Temp 28 L (42-55) mm/Hg VBG pO2 at Pat Temp 32 (25-40) mm/Hg VBG HCO3 23.9 (22-28) meq/L VBG O2 Sat (Imtiaz) 60.1 L (95-100) VBG Base Excess 2.3 H (-2.0-2.0) VBG Hemoglobin 9.4 VBG Carboxyhemoglobin 3.7 (0.0-6.9) % T HGB POC Potassium 3.5 (3.5-5.1) Sodium (137-145) mmol/L Potassium (3.5-5.1) mmol/L Chloride (98-107) mmol/L Carbon Dioxide (22-30) mmol/L Anion Gap (5-15) MEQ/L BUN (9-20) mg/dL Creatinine (0.66-1.25) mg/dL Estimated GFR ML/MIN Glucose (74-106) mg/dL Lactic Acid 1.2 (0.4-2.0) Calcium (8.4-10.2) mg/dL Total Bilirubin (0.2-1.3) mg/dL AST (17-59) U/L ALT (0-50) U/L Alkaline Phosphatase (38-126) U/L Troponin I (0.000-0.034) ng/mL NT-Pro-B Natriuret Pep (0-900) pg/mL Serum Total Protein (6.3-8.2) g/dL Albumin (3.5-5.0) g/dL Digoxin 0.8 (0.8-1.9) ng/mL Influenza Type A Ag (NEGATIVE) Influenza Type B Ag (NEGATIVE) RSV (PCR) (Negative) SARS-CoV-2 (PCR) (NEGATIVE) Slides for Path Review 04/10/22 04/10/22 04/10/22 Range/Units 19:05 19:05 19:05 WBC (4.0-10.5) x10^3/uL RBC (4.1-5.6) x10^6/uL Hgb (12.5-18.0) g/dL Hct (42-50) % MCV (78-100) fL MCH (26-32) pg MCHC (32-36) g/dL RDW (11.5-14.0) % Plt Count (150-450) x10^3/uL MPV (7.5-11.0) fL Gran % (36.0-66.0) % Immature Gran % (Auto) (0.00-0.4) % Nucleat RBC Rel Count (0.00-0.1) % Eos # (Auto) (0-0.5) x10^3/uL Immature Gran # (Auto) (0.00-0.03) x10^3u/L Absolute Lymphs (auto) (1.0-4.6) x10^3/uL Absolute Monos (auto) (0.0-1.3) x10^3/uL Absolute Nucleated RBC (0.00-0.01) x10^3u/L Lymphocytes % (24.0-44.0) % Monocytes % (0.0-12.0) % Eosinophils % (0.00-5.0) % Basophils % (0.0-0.4) % Absolute Granulocytes (1.4-6.9) x10^3/uL Basophils # (0-0.4) x10^3/uL PT 14.0 H (9.4-12.5) SECONDS INR 1.36 (0.8-3.0) APTT 36.8 H (25.1-36.5) SECONDS pO2/FiO2 Ratio % VBG pH (7.32-7.42) VBG pCO2 at Pat Temp (42-55) mm/Hg VBG pO2 at Pat Temp (25-40) mm/Hg VBG HCO3 (22-28) meq/L VBG O2 Sat (Imtiaz) (95-100) VBG Base Excess (-2.0-2.0) VBG Hemoglobin VBG Carboxyhemoglobin (0.0-6.9) % T HGB POC Potassium (3.5-5.1) Sodium 133 L (137-145) mmol/L Potassium 3.5 (3.5-5.1) mmol/L Chloride 101 (98-107) mmol/L Carbon Dioxide 24 (22-30) mmol/L Anion Gap 11.9 (5-15) MEQ/L BUN 18 (9-20) mg/dL Creatinine 1.36 H (0.66-1.25) mg/dL Estimated GFR 57.0 ML/MIN Glucose 92 (74-106) mg/dL Lactic Acid (0.4-2.0) Calcium 8.5 (8.4-10.2) mg/dL Total Bilirubin 1.50 H (0.2-1.3) mg/dL AST 29 (17-59) U/L ALT 33 (0-50) U/L Alkaline Phosphatase 83 (38-126) U/L Troponin I 0.025 (0.000-0.034) ng/mL NT-Pro-B Natriuret Pep 4090 H (0-900) pg/mL Serum Total Protein 6.7 (6.3-8.2) g/dL Albumin 3.6 (3.5-5.0) g/dL Digoxin (0.8-1.9) ng/mL Influenza Type A Ag NEGATIVE (NEGATIVE) Influenza Type B Ag NEGATIVE (NEGATIVE) RSV (PCR) NEGATIVE (Negative) SARS-CoV-2 (PCR) NEGATIVE (NEGATIVE) Slides for Path Review 04/10/22 Range/Units 19:05 WBC 12.2 H (4.0-10.5) x10^3/uL RBC 3.32 L (4.1-5.6) x10^6/uL Hgb 9.0 L (12.5-18.0) g/dL Hct 32.5 L (42-50) % MCV 97.9 (78-100) fL MCH 27.1 (26-32) pg MCHC 27.7 L (32-36) g/dL RDW 18.0 H (11.5-14.0) % Plt Count 179 (150-450) x10^3/uL MPV 10.4 (7.5-11.0) fL Gran % 89.5 H (36.0-66.0) % Immature Gran % (Auto) 0.6 H (0.00-0.4) % Nucleat RBC Rel Count 0.0 (0.00-0.1) % Eos # (Auto) 0.03 (0-0.5) x10^3/uL Immature Gran # (Auto) 0.07 H (0.00-0.03) x10^3u/L Absolute Lymphs (auto) 0.38 L (1.0-4.6) x10^3/uL Absolute Monos (auto) 0.78 (0.0-1.3) x10^3/uL Absolute Nucleated RBC 0.00 (0.00-0.01) x10^3u/L Lymphocytes % 3.1 L (24.0-44.0) % Monocytes % 6.4 (0.0-12.0) % Eosinophils % 0.2 (0.00-5.0) % Basophils % 0.2 (0.0-0.4) % Absolute Granulocytes 10.94 H (1.4-6.9) x10^3/uL Basophils # 0.03 (0-0.4) x10^3/uL PT (9.4-12.5) SECONDS INR (0.8-3.0) APTT (25.1-36.5) SECONDS pO2/FiO2 Ratio % VBG pH (7.32-7.42) VBG pCO2 at Pat Temp (42-55) mm/Hg VBG pO2 at Pat Temp (25-40) mm/Hg VBG HCO3 (22-28) meq/L VBG O2 Sat (Imtiaz) (95-100) VBG Base Excess (-2.0-2.0) VBG Hemoglobin VBG Carboxyhemoglobin (0.0-6.9) % T HGB POC Potassium (3.5-5.1) Sodium (137-145) mmol/L Potassium (3.5-5.1) mmol/L Chloride (98-107) mmol/L Carbon Dioxide (22-30) mmol/L Anion Gap (5-15) MEQ/L BUN (9-20) mg/dL Creatinine (0.66-1.25) mg/dL Estimated GFR ML/MIN Glucose (74-106) mg/dL Lactic Acid (0.4-2.0) Calcium (8.4-10.2) mg/dL Total Bilirubin (0.2-1.3) mg/dL AST (17-59) U/L ALT (0-50) U/L Alkaline Phosphatase (38-126) U/L Troponin I (0.000-0.034) ng/mL NT-Pro-B Natriuret Pep (0-900) pg/mL Serum Total Protein (6.3-8.2) g/dL Albumin (3.5-5.0) g/dL Digoxin (0.8-1.9) ng/mL Influenza Type A Ag (NEGATIVE) Influenza Type B Ag (NEGATIVE) RSV (PCR) (Negative) SARS-CoV-2 (PCR) (NEGATIVE) Slides for Path Review YES - Progress Progress: improved Progress Note: 04/11/22 02:[address] Thomas at [facility] 3.375mg IV Zosyn/500mg IV Zithromax Pt in critical, but stable condition before transfer per [facility] ground ambulance 04/11/22 02:15 Sats stable in low to mid 90's on 2L O2 NC 04/11/22 02:15 Counseled pt/family regarding: lab results, diagnosis, need for follow-up, rad results - Departure Departure Disposition: Transfer Clinical Impression: Pneumonia Condition: Stable Critical Care Time: Yes Critical Care Time(excluding separately billable procedures): Critical 75-104 mins Referrals: REMEDIOS MARTIN [Primary Care Provider] - Follow up/PCP as directed Instructions: Pneumonia, Adult (DC)
[2022-04-10 20:04] LABS: INFLUENZA A NEGATIVE (NEGATIVE); INFLUENZA B NEGATIVE (NEGATIVE); RESPIRATORY SYNCTIAL VIRUS NEGATIVE (Negative); SARS-CoV-2 Xpert Express NEGATIVE (NEGATIVE)
[2022-04-10 21:02] LABS: Slide Review 1 YES
[2022-04-10] MEDS ORDERED: Zithromax 500 MG/ 250 ML NaCl Premix 500 MG/250 ML IVPB IV STA (23:20)
[2022-04-10] MEDS ORDERED: Zithromax 500 MG/ 250 ML NaCl Premix 500 MG/250 ML IVPB IV ONE (23:22)
[2022-04-11 00:24] VITALS: PULSE 135
[2022-04-11 02:16] VITALS: O2SAT 96
--- NOTE | 2022-04-11 08:53 | XRAY ---
Indication: Short of breath and dizziness. Comparison: October 10, 2021 Portable chest demonstrates new left lower lobe infiltrate with small effusion. Remaining heart and lungs unremarkable again with incidental left pacemaker and LVAD. Bony thorax intact again with osteopenia and degenerative changes.
== END 2022-04-11 01:07 | disposition short-term general hospital (02) ==
LOC: ED 18:17
DX: J18.9 Pneumonia, unspecified organism (principal); R06.00 Dyspnea, unspecified; R11.0 Nausea; R50.9 Fever, unspecified; I25.10 Atherosclerotic heart disease of native coronary artery without angina pectoris; J43.9 Emphysema, unspecified; Z72.0 Tobacco use; Z79.01 Long term (current) use of anticoagulants; Z79.899 Other long term (current) drug therapy; Z20.828 Contact with and (suspected) exposure to other viral communicable diseases
CPT/HCPCS: 0241U; 36000; 36415; 71045; 80053; 80162; 82805; 83605; 83880; 84484; 85025; 85610; 85730; 87040; 93005; 93041; 94760; 96365; 99285; 99291; 99292; J0456; A9270-GY

== ENCOUNTER 2022-10-25 15:17 | Day surgery (SDC) | payer MEDICARE ==
[2022-10-25] MEDS ORDERED: LIDOCAINE HCL 1% 50 MG/5 ML VL PF IJ ONE (15:18)
[2022-10-25] MEDS ORDERED: GELSYN-3 IU ONE (15:18)
--- NOTE | 2022-10-25 20:25 | XRAY ---
Indication: Left knee injection. Intraoperative fluoroscopy provided for 8 seconds. Single digital spot image submitted for interpretation demonstrates needle tip projecting over the left femur intercondylar notch. Small amount of contrast injected for needle tip placement. Correlate with intraoperative findings/report.
--- NOTE | 2022-10-25 20:26 | XRAY ---
Indication: Right knee injection. Intraoperative fluoroscopy provided for 12 seconds. Single digital spot image submitted for interpretation demonstrates needle tip projecting over the right femur intercondylar notch. Small amount of contrast injected for needle tip placement. Correlate with intraoperative findings/report.
--- NOTE | 2022-10-26 09:24 | XRAY ---
8 seconds of fluoroscopy was used in surgery for a left intra-articular knee injection.
--- NOTE | 2022-10-26 09:24 | XRAY ---
12 seconds of fluoroscopy was used in surgery for a right intra-articular knee injection.
== END 2022-10-25 18:35 | disposition home or self-care (01) ==
LOC: SDC-PAIN 15:17
PROVIDERS: ATTEND Psychiatry & Neurology Pain Medicine
DX: M17.0 Bilateral primary osteoarthritis of knee (principal); Z79.899 Other long term (current) drug therapy
CPT/HCPCS: 20610; 73560; 77002; J2001; J7328; Q9966

== ENCOUNTER 2022-11-01 15:15 | Day surgery (SDC) | payer MEDICARE | END 2022-11-01 16:10 | disposition home or self-care (01) | LOC: SDC-PAIN 15:15 | PROVIDERS: ATTEND Psychiatry & Neurology Pain Medicine | DX: Z53.8 Procedure and treatment not carried out for other reasons (principal) ==

== ENCOUNTER 2022-11-08 12:05 | Day surgery (SDC) | payer MEDICARE ==
[2022-11-08] MEDS ORDERED: LIDOCAINE HCL 1% 50 MG/5 ML VL PF IJ ONE (12:06)
[2022-11-08] MEDS ORDERED: GELSYN-3 IU ONE (12:06)
[2022-11-08] MEDS ORDERED: Lactated Ringers 1,000 ML IV ONE (13:58)
[2022-11-08] MEDS ORDERED: Versed 2 MG/2 ML Injection ONE (14:10)
--- NOTE | 2022-11-08 15:07 | XRAY ---
Indication: Right knee injection. Intraoperative fluoroscopy provided for 9 seconds. Single digital spot image submitted for interpretation demonstrates needle tip projecting over the right femur intercondylar notch. Small amount of contrast injected for needle tip placement. Correlate with intraoperative findings/report.
--- NOTE | 2022-11-08 15:07 | XRAY ---
9 seconds of fluoroscopy was used in surgery for a right intra-articular knee injection.
--- NOTE | 2022-11-08 16:47 | XRAY ---
Indication: Left knee injection. Intraoperative fluoroscopy provided for 5 seconds. Single digital spot image submitted for interpretation demonstrates needle tip projecting over the left femur intercondylar notch. Small amount of contrast injected for needle tip placement. Correlate with intraoperative findings/report.
--- NOTE | 2022-11-08 16:49 | XRAY ---
5 seconds of fluoroscopy was used in surgery for a left knee intra-articular injection.
== END 2022-11-08 14:45 | disposition home or self-care (01) ==
LOC: SDC-PAIN 12:05
PROVIDERS: ATTEND Psychiatry & Neurology Pain Medicine
DX: M17.0 Bilateral primary osteoarthritis of knee (principal); Z79.899 Other long term (current) drug therapy
CPT/HCPCS: 20610; 73560; 77002; J2001; J2250; J7328; Q9966

== ENCOUNTER 2022-11-15 10:08 | Day surgery (SDC) | payer MEDICARE ==
[2022-11-15] MEDS ORDERED: GELSYN-3 IU ONE (10:09)
[2022-11-15] MEDS ORDERED: LIDOCAINE HCL 1% 50 MG/5 ML VL PF IJ ONE (10:09)
[2022-11-15] MEDS ORDERED: DIPRIVAN 200 MG/20 ML IV ONE (12:34)
[2022-11-15] MEDS ORDERED: Versed 2 MG/2 ML Injection ONE (12:35)
--- NOTE | 2022-11-15 13:30 | XRAY ---
Indication: Left knee injection. Intraoperative fluoroscopy provided for 3 seconds. Single digital spot image submitted for interpretation demonstrates needle tip projecting over the left femur intercondylar notch. Small amount of contrast injected for needle tip placement. Correlate with intraoperative findings/report.
--- NOTE | 2022-11-15 13:30 | XRAY ---
Indication: Right knee injection. Intraoperative fluoroscopy provided for 8 seconds. Single digital spot image submitted for interpretation demonstrates needle tip projecting over the right femur intercondylar notch. Small amount of contrast injected for needle tip placement. Correlate with intraoperative findings/report.
--- NOTE | 2022-11-15 13:32 | XRAY ---
8 seconds of fluoroscopy was used in surgery for a right intra-articular knee injection.
--- NOTE | 2022-11-15 13:33 | XRAY ---
3 seconds of fluoroscopy was used in surgery for a left intra-articular knee injection.
[2022-11-15] MEDS ORDERED: Lactated Ringers 1,000 ML IV ONE (15:28)
== END 2022-11-15 13:05 | disposition home or self-care (01) ==
LOC: SDC-PAIN 10:08
PROVIDERS: ATTEND Psychiatry & Neurology Pain Medicine
DX: M17.0 Bilateral primary osteoarthritis of knee (principal); Z79.899 Other long term (current) drug therapy
CPT/HCPCS: 20610; 73560; 77002; J2001; J2250; J2704; J7328; Q9966

== ENCOUNTER 2023-05-04 15:25 | Emergency (ER) | payer MEDICARE ==
[2023-05-04] MEDS ORDERED: MORPHINE SULFATE 4 MG INJ IV ONE (15:47)
[2023-05-04] MEDS ORDERED: Zofran 4 MG/2 ML VIAL IV ONE (15:47)
[2023-05-04 16:31] LABS: Absolute Neutrophil Ct (ANC) 3.72 x10^3/uL (1.4-6.9); BASOPHIL % 0.2 % (0.0-0.4); Basophil (Absolute #) 0.01 x10^3/uL (0-0.4); Eosinophil % 0.6 % (0.00-5.0); Eosinophil (Absolute #) 0.03 x10^3/uL (0-0.5); Hematocrit 25.3 % (42-50); Hemoglobin 7.6 g/dL (12.5-18.0); IMMATURE GRAN # 0.04 x10^3u/L (0.00-0.03); IMMATURE GRAN % 0.8 % (0.00-0.4); Lymphocyte (Absolute #) 1.14 x10^3/uL (1.0-4.6); Lymphocytes % 21.6 % (24.0-44.0); Mean Cell Volume 121.1 fL (78-100); Mean Corpuscular Hemoglobin 36.4 pg (26-32); Monocyte (Absolute #) 0.34 x10^3/uL (0.0-1.3); Monocytes % 6.4 % (0.0-12.0); NUCLEATED RBC # 0.02 x10^3u/L (0.00-0.01); NUCLEATED RBC % 0.4 % (0.00-0.1); Neutrophil % 70.4 % (36.0-66.0); Platelet Count 202 x10^3/uL (150-450); Red Blood Count 2.09 x10^6/uL (4.1-5.6); Red Cell Distribution Width 15.2 % (11.5-14.0); White Blood Count 5.3 x10^3/uL (4.0-10.5)
--- NOTE | 2023-05-04 16:31 | ERPHSYRPT ---
- History of Present Illness Time Seen by Provider: 05/04/23 15:29 Source: patient Exam Limitations: no limitations Patient Subjective Stated Complaint: Pt is post op rt knee replacement on 04/16/2023 and a heart transplant last year and pt has brandon low ext edema but greater on the right with tightness and pain Triage Nursing Assessment: Pt brought to the ER by his , vitals wnl, rates pain as 6/10, right leg has a bandage going down the right knee from a total knee replacement, the entire leg is warm to the touch and hard and swollen, pt has been off of his diuretic for the past 3 weeks and has brandon lower leg +4 edema, pt has extreme pain with palpatation to the right leg, pulses felt and pulses heard with doppler Physician History: 62 years old male with history of cardiac transplant almost a year ago, hyper tension, hyperlipidemia, diabetes mellitus, congestive heart failure, right TKA presented in the ER with increasing pain swelling and tightness of right lower extremity for almost 1 week. Has TKA done almost [address] [facility]. Patient reports taking [place] 10 with no significant relief. Does have bilateral lower extremity swelling at his baseline but very worse in the right as compared to the left. He was on diuretics but was taken off for almost 2 weeks. Denies any chest pain palpitations or shortness of breath. No fever or chills reported. Patient reports tightness and swelling extending from right foot to upper half of thigh. No discharge from incision area. Allergies/Adverse Reactions: valsartan Allergy (Verified 05/04/23 16:05) Home Medications: Amitriptyline HCl 25 mg [Amitriptyline 25 mg Tablet] 50 mg PO DAILY 08/02/21 [History] Atorvastatin Calcium 80 mg PO DAILY 08/02/21 [History] HydrALAzine HCL 25 MG TAB [Apresoline 25 MG TABLET] 50 mg PO TID 08/02/21 [History] Semaglutide [Ozempic] 2 mg SQ WEEKLY 08/02/21 [History] Aspirin 81 gm Chew [Baby Aspirin 81 mg Chew] 81 mg PO DAILY 04/10/22 [History] Gabapentin [Neurontin] 300 mg PO TID 04/10/22 [History] Ascorbic Acid [Vitamin C] 1,000 mg PO DAILY 05/04/23 [History] Calcium Citrate/Vitamin D3 [[facility] [place] Cit 200 mg-D3 6.25 Mcg] 3 tab PO DAILY 05/04/23 [History] Docusate Sodium 100 mg [Docusate Sodium 100 MG] 100 mg PO BID 05/04/23 [History] Ferrous Sulfate 325 mg PO BID 05/04/23 [History] Folic Acid 1 mg [Folate 1 mg] 1 mg PO BID 05/04/23 [History] Icosapent Ethyl [Vascepa] 2 gm PO BID 05/04/23 [History] Magnesium Oxide 400 mg PO BID 05/04/23 [History] Multivitamin 1 each PO DAILY 05/04/23 [History] Oxycodone HCl/Acetaminophen [Oxycodone-Acetaminophen 5-325] 1 tab PO Q6H PRN 05/04/23 [History] PANTOPRAZOLE 40 mg Tablet [Protonix 40MG Tablet] 40 mg PO QAM 05/04/23 [History] Pramipexole Di-HCl [Pramipexole Dihydrochloride] 1 mg PO TID 05/04/23 [History] Prednisone 5 mg [Deltasone 5 mg] 5 mg PO DAILY 05/04/23 [History] Sertraline HCl 50 mg [Zoloft 50 mg Tablet] 50 mg PO DAILY 05/04/23 [History] Tacrolimus [Prograf] 5 cap PO DAILY 05/04/23 [History] Tizanidine HCl [Zanaflex] 2 mg PO TID PRN 05/04/23 [History] Valganciclovir HCl [Valcyte] 900 mg PO QAM 05/04/23 [History] Vitamin E Mixed [Vitamin E] 400 unit PO BID 05/04/23 [History] dilTIAZem HCL [Diltiazem ER] 240 mg PO DAILY 05/04/23 [History] Hx Tetanus, Diphtheria Vaccination/Date Given: No Hx Influenza Vaccination/Date Given: Yes Hx Pneumococcal Vaccination/Date Given: No Travel Risk - International Travel Have you traveled outside of the country in past 3 weeks: No - Coronavirus Screening Are you exhibiting any of the following symptoms?: No Close contact with a COVID-19 positive Pt in past 14-21 Days: No - Vaccine Status Have you recieved a Covid-19 vaccination: Yes 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: [employer] - Vaccination Dates Date of 2cond Vaccination (if applicable): 2020 - Review of Systems Constitutional: Fatigue, Weakness Eyes: No Symptoms Ears, Nose, & Throat: No Symptoms Respiratory: No Symptoms Cardiac: Edema Abdominal/Gastrointestinal: No Symptoms Genitourinary Symptoms: No Symptoms Musculoskeletal: Arthralgias, Joint Pain, Joint Swelling Skin: Skin Lesions Neurological: No Symptoms Hematologic/Lymphatic: No Symptoms Immunological/Allergic: No Symptoms - Past Medical History Pertinent Past Medical History: Yes Neurological History: No Pertinent History Cardiac History: Hypertension, Myocardial Infarction (PA) Respiratory History: Emphysema Endocrine Medical History: No Pertinent History Musculoskeletal History: Arthritis Other Medical History: HEART TRANSPLANT ~1 YEAR, 1992 LUMBAR L4/5 LAMINECTOMY. 2017 PA, 2017 LVAD, PACEMAKER/DEFIBRILLATOR (REMOVED POST HEART TRANSPLANT), CARPAL TUNNEL L>R. RUSSELL. PATIENT REPORTS HE NEEDS L TKR AFTER R TKR. - Past Surgical History Past Surgical History: Yes (UNKNOWN) Cardiac: Cardiac Catheterization, Cardiac Stent, Internal Defibrillator, Pacemaker Musculoskeletal: Joint Replacement Other Surgical History: LVAD, right total knee replacement, heart transplant - Social History Smoking Status: Former smoker How long have you smoked: 1 Exposure to second hand smoke: Yes Drug Use: none Patient Lives Alone: No - Nursing Vital Signs Nursing Vital Signs: Initial Vital Signs Temperature 97.8 F 05/04/23 15:38 Pulse Rate 97 H 05/04/23 15:38 Blood Pressure 115/74 05/04/23 15:38 O2 Sat by Pulse Oximetry 94 L 05/04/23 15:38 Pain Scale Pain Intensity 4 - Physical Exam General Appearance: no apparent distress, alert Eye Exam: PERRL/EOMI Ears, Nose, Throat Exam: normal ENT inspection Neck Exam: normal inspection, supple, full range of motion Respiratory Exam: normal breath sounds, lungs clear Cardiovascular Exam: regular rate/rhythm, normal heart sounds Gastrointestinal/Abdomen Exam: soft, No tenderness Extremity Exam: pedal edema, swelling, other (2+ pitting edema diffusely right lower extremity. Weakly palpable dorsalis pedis and dopplerable dorsalis pedis. Cap refill less than 3 seconds. Tenderness to palpation along entire right lower extremity. Minimal erythema around incision area.) Neurologic Exam: alert, oriented x 3, cooperative Skin Exam: normal color SpO2 Interpretation: normal SpO2: 94 O2 Delivery: Room Air Ordered Tests: Active Orders 24 hr Category Date Time Status IV Insertion STAT Care 05/04/23 15:47 Active VENOUS UNILAT/LIMITED EXTREMIT [US] Stat Exams 05/04/23 15:48 Taken BLOOD CULTURE Stat Lab 05/04/23 16:25 Received CBC W DIFF Stat Lab 05/04/23 16:25 Completed CMP Stat Lab 05/04/23 16:25 Completed Lactic Acid Stat Lab 05/04/23 16:25 Completed NT PRO BNPII Stat Lab 05/04/23 16:25 Completed PROCALCITONIN Stat Lab 05/04/23 16:25 Completed PT INR [PROTIME WITH INR] Stat Lab 05/04/23 16:25 Completed PTT Stat Lab 05/04/23 16:25 Completed Medication Summary Discontinued Medications Generic Name Dose Route Start Last Admin Trade Name Freq PRN Reason Stop Dose Admin Enoxaparin Sodium 100 mg 05/04/23 18:15 05/04/23 18:53 Enoxaparin Sodium 100 Mg/Ml Syringe 1 mg/kg (100 mg) 05/04/23 18:16 100 mg SQ Administration ONCE STA Enoxaparin Sodium Confirm 05/04/23 18:52 Enoxaparin Sodium 120 Mg/0.8 Ml Syringe Administered 05/04/23 18:53 Dose 120 mg SQ .STK-MED ONE Morphine Sulfate 4 mg 05/04/23 15:47 05/04/23 16:38 Morphine Sulfate 4 Mg/Ml Injection IV 05/04/23 15:48 4 mg STAT ONE Administration Morphine Sulfate Confirm 05/04/23 16:36 Morphine Sulfate 4 Mg/Ml Injection Administered 05/04/23 16:37 Dose 4 mg .ROUTE .STK-MED ONE Ondansetron HCl 4 mg 05/04/23 15:47 05/04/23 16:38 Ondansetron Hcl 4 Mg/2 Ml Vial IV 05/04/23 15:48 4 mg STAT ONE Administration Ondansetron HCl Confirm 05/04/23 16:36 Ondansetron Hcl 4 Mg/2 Ml Vial Administered 05/04/23 16:37 Dose 4 mg .ROUTE .STK-MED ONE Lab/Rad Data: Laboratory Result Diagrams 05/04/23 16:25 05/04/23 16:25 Laboratory Results 0905/04/23 05/04/23 Range/Units 16:25 16:25 16:25 WBC (4.0-10.5) x10^3/uL RBC (4.1-5.6) x10^6/uL Hgb (12.5-18.0) g/dL Hct (42-50) % MCV (78-100) fL MCH (26-32) pg MCHC (32-36) g/dL RDW (11.5-14.0) % Plt Count (150-450) x10^3/uL MPV (7.5-11.0) fL Gran % (36.0-66.0) % Immature Gran % (Auto) (0.00-0.4) % Nucleat RBC Rel Count (0.00-0.1) % Eos # (Auto) (0-0.5) x10^3/uL Immature Gran # (Auto) (0.00-0.03) x10^3u/L Absolute Lymphs (auto) (1.0-4.6) x10^3/uL Absolute Monos (auto) (0.0-1.3) x10^3/uL Absolute Nucleated RBC (0.00-0.01) x10^3u/L Lymphocytes % (24.0-44.0) % Monocytes % (0.0-12.0) % Eosinophils % (0.00-5.0) % Basophils % (0.0-0.4) % Absolute Granulocytes (1.4-6.9) x10^3/uL Basophils # (0-0.4) x10^3/uL PT 11.2 (9.4-12.5) SECONDS INR 1.03 (0.8-3.0) APTT 30.1 (25.1-36.5) SECONDS Sodium 140 (137-145) mmol/L Potassium 4.5 (3.5-5.1) mmol/L Chloride 107 (98-107) mmol/L Carbon Dioxide 24 (22-30) mmol/L Anion Gap 14.2 (5-15) MEQ/L BUN 19 (9-20) mg/dL Creatinine 0.93 (0.66-1.25) mg/dL Estimated GFR > 60.0 ML/MIN Glucose 90 (74-106) mg/dL Lactic Acid 0.7 (0.4-2.0) Calcium 8.5 (8.4-10.2) mg/dL Total Bilirubin 1.10 (0.2-1.3) mg/dL AST 29 (17-59) U/L ALT 23 (0-50) U/L Alkaline Phosphatase 91 (38-126) U/L NT-Pro-B Natriuret Pep 851 (<300) pg/mL Serum Total Protein 6.8 (6.3-8.2) g/dL Albumin 3.4 L (3.5-5.0) g/dL Procalcitonin 1.120 H (0.030-0.080) ng/mL Slides for Path Review 05/04/23 Range/Units 16:25 WBC 5.3 (4.0-10.5) x10^3/uL RBC 2.09 L (4.1-5.6) x10^6/uL Hgb 7.6 L (12.5-18.0) g/dL Hct 25.3 L (42-50) % MCV 121.1 H (78-100) fL MCH 36.4 H (26-32) pg MCHC 30.0 L (32-36) g/dL RDW 15.2 H (11.5-14.0) % Plt Count 202 (150-450) x10^3/uL MPV 10.0 (7.5-11.0) fL Gran % 70.4 H (36.0-66.0) % Immature Gran % (Auto) 0.8 H (0.00-0.4) % Nucleat RBC Rel Count 0.4 H (0.00-0.1) % Eos # (Auto) 0.03 (0-0.5) x10^3/uL Immature Gran # (Auto) 0.04 H (0.00-0.03) x10^3u/L Absolute Lymphs (auto) 1.14 (1.0-4.6) x10^3/uL Absolute Monos (auto) 0.34 (0.0-1.3) x10^3/uL Absolute Nucleated RBC 0.02 H (0.00-0.01) x10^3u/L Lymphocytes % 21.6 L (24.0-44.0) % Monocytes % 6.4 (0.0-12.0) % Eosinophils % 0.6 (0.00-5.0) % Basophils % 0.2 (0.0-0.4) % Absolute Granulocytes 3.72 (1.4-6.9) x10^3/uL Basophils # 0.01 (0-0.4) x10^3/uL PT (9.4-12.5) SECONDS INR (0.8-3.0) APTT (25.1-36.5) SECONDS Sodium (137-145) mmol/L Potassium (3.5-5.1) mmol/L Chloride (98-107) mmol/L Carbon Dioxide (22-30) mmol/L Anion Gap (5-15) MEQ/L BUN (9-20) mg/dL Creatinine (0.66-1.25) mg/dL Estimated GFR ML/MIN Glucose (74-106) mg/dL Lactic Acid (0.4-2.0) Calcium (8.4-10.2) mg/dL Total Bilirubin (0.2-1.3) mg/dL AST (17-59) U/L ALT (0-50) U/L Alkaline Phosphatase (38-126) U/L NT-Pro-B Natriuret Pep (<300) pg/mL Serum Total Protein (6.3-8.2) g/dL Albumin (3.5-5.0) g/dL Procalcitonin (0.030-0.080) ng/mL Slides for Path Review YES - Progress Progress: improved, pain not gone completely, re-examined Progress Note: 05/04/23 16:30 62 years old male with history of cardiac transplant almost a year ago, hypertension, hyperlipidemia, diabetes mellitus, congestive heart failure, right TKA presented in the ER with increasing pain swelling and tightness of right lower extremity for almost 1 week. Has TKA done almost [address] [facility]. Patient reports taking [place] 10 with no significant relief. Does have bilateral lower extremity swelling at his baseline but very worse in the right as compared to the left. He was on diuretics but was taken off for almost 2 weeks. Denies any chest pain palpitations or shortness of breath. No fever or chills reported. Patient reports tightness and swelling extending from right foot to upper half of thigh. No discharge from incision area. Patient has diffuse swelling right lower extremity, tenderness along entire right lower leg. 2+ pitting edema. Mild increased temperature. Dorsalis pedis weakly palpable but well dopplerable. Cap refill less than 3 seconds. Minimal erythema around incision area. No discharge noticed. We will do give pain medicine and obtain ultrasound to rule out DVT along with other blood work. 05/04/23 18:16 Ultrasound is positive for right distal thigh nonocclusive DVT and ruptured Oh's cyst. White count is normal. Normal lactate. Chemistries fairly unremarkable. Patient is feeling better after symptomatic treatment. Called [place] heart transplant team who have discussed with her gambling monitor, recommended starting on Lovenox and Dr. Palm has accepted patient for transfer. I have discussed the results of work-up and plan of transfer with patient and family who understand and agree with it. Discussed with : Other Counseled pt/family regarding: lab results, diagnosis, rad results Medical Desision Making - Independent Historian Additional History obtained from: Spouse - Discussion of managment Care discussed with:: on-call "doc" Reviewed:: Test results Agreed on:: Treatment plan Will see patient: in hospital - Diagnostic Testing Radiological Interpretation: Reviewed by me - Risk of complications The pt has a high risk of morbidity or mortality based on: Decision regarding hospitilization or escalation of hosp level of care - Departure Departure Disposition: Transfer Clinical Impression: Deep vein thrombosis, lower right extremity Condition: Stable Critical Care Time: No Referrals: REMEDIOS MARTIN [Primary Care Provider] - Follow up/PCP as directed
[2023-05-04] MEDS ORDERED: Zofran 4 MG/2 ML VIAL ONE (16:36)
[2023-05-04] MEDS ORDERED: MORPHINE SULFATE 4 MG INJ ONE (16:36)
[2023-05-04 17:00] LABS: ALBUMIN 3.4 g/dL (3.5-5.0); ALKALINE PHOSPHATASE 91 U/L (38-126); ANION GAP 14.2 MEQ/L (5-15); BLOOD UREA NITROGEN 19 mg/dL (9-20); CHLORIDE 107 mmol/L (98-107); Calcium 8.5 mg/dL (8.4-10.2); Carbon Dioxide 24 mmol/L (22-30); Creatinine 1 0.93 mg/dL (0.66-1.25); EST GLOMERULAR FILTRATION RATE > 60.0 ML/MIN; Glucose 90 mg/dL (74-106); NT PRO BNPII 851 pg/mL (<300); Potassium 4.5 mmol/L (3.5-5.1); SGOT/AST 29 U/L (17-59); SGPT/ALT 23 U/L (0-50); SODIUM 140 mmol/L (137-145); Total Protein 6.8 g/dL (6.3-8.2)
[2023-05-04] MEDS ORDERED: ENOXAPARIN SODIUM SQ STA (18:15)
[2023-05-04 18:23] LABS: INR 1.03 (0.8-3.0); PROTIME 11.2 SECONDS (9.4-12.5); PTT 30.1 SECONDS (25.1-36.5)
[2023-05-04] MEDS ORDERED: ENOXAPARIN SODIUM SQ ONE (18:52)
[2023-05-04 19:44] LABS: Slide Review 1 YES
--- NOTE | 2023-05-04 22:19 | XRAY ---
Indication: Pain and swelling following knee replacement surgery 2 weeks ago. Two-dimensional sonogram and color Doppler imaging of the major venous vessels of the right leg performed. Comparison: None Nonoccluding thrombi seen in the distal femoral vein. No other thrombus in the remaining deep femoral, popliteal, posterior tibial, and greater saphenous veins. Posterior knee demonstrates heterogeneous fluid collection measuring 6.0 x 1.4 x 2.8 cm either complex Oh cyst versus postoperative hematoma/seroma. Impression: 1. Nonoccluding DVT distal femoral vein. 2. Heterogeneous fluid collection posterior knee either complex Oh's cyst versus postoperative hematoma/seroma. Comment: Preliminary report was given.
[2023-05-05] MEDS ORDERED: Zofran 4 MG/2 ML VIAL IV ONE (00:25)
[2023-05-05] MEDS ORDERED: MORPHINE SULFATE 4 MG INJ IV ONE (00:25)
[2023-05-05] MEDS ORDERED: MORPHINE SULFATE 4 MG INJ ONE (00:27)
[2023-05-05] MEDS ORDERED: Zofran 4 MG/2 ML VIAL ONE (00:27)
[2023-05-05 01:15] VITALS: BP 123/77; PULSE 94; RESP 17; TEMP 97.6; O2SAT 98
== END 2023-05-05 01:15 | disposition short-term general hospital (02) ==
LOC: ED 15:25
DX: I82.4Y1 Acute embolism and thrombosis of unspecified deep veins of right proximal lower extremity (principal); E78.5 Hyperlipidemia, unspecified; I11.0 Hypertensive heart disease with heart failure; I50.9 Heart failure, unspecified; E11.9 Type 2 diabetes mellitus without complications; Z79.891 Long term (current) use of opiate analgesic; Z79.85 Long-term (current) use of injectable non-insulin antidiabetic drugs; Z79.52 Long term (current) use of systemic steroids; Z79.899 Other long term (current) drug therapy
CPT/HCPCS: 36000; 36415; 80053; 83605; 83880; 84145; 85025; 85610; 85730; 87040; 93971; 96372; 96374; 96375; 96376; 99285; J1650; J2270; J2405

== ENCOUNTER 2025-05-25 12:15 | Emergency (ER) | payer MEDICARE, OTHER ==
[2025-05-25 12:31] VITALS: TEMP 96.3; O2SAT 98
--- NOTE | 2025-05-25 12:45 | ERPHSYRPT ---
- History of Present Illness Time Seen by Provider: 05/25/25 12:43 Source: patient Exam Limitations: no limitations Patient Subjective Stated Complaint: pt states that his knee buckled and fell. pt states that he put his hand down to catch his fall Triage Nursing Assessment: pt ambulated into the er; pt is axo x4; c/o left hand injury; pt states 8/10 pain to left hand, wrist, forearm; swelling, tenderness present to left hand; strong left radial pulse; vitals wnl; skin PDW; no respiratory distress present Timing/Duration: today Severity: mild Allergies/Adverse Reactions: valsartan Allergy (Verified 05/25/25 12:22) Home Medications: Amitriptyline HCl 25 mg [Amitriptyline 25 mg Tablet] 75 mg PO DAILY 08/02/21 [History] Atorvastatin Calcium 80 mg PO DAILY 08/02/21 [History] HydrALAzine HCL 25 MG TAB [Apresoline 25 MG TABLET] 25 mg PO TID 08/02/21 [History] Aspirin 81 gm Chew [Baby Aspirin 81 mg Chew] 81 mg PO DAILY 04/10/22 [History] Gabapentin [Neurontin] 300 mg PO TID 04/10/22 [History] Ascorbic Acid [Vitamin C] 1,000 mg PO DAILY 05/04/23 [History] Calcium Citrate/Vitamin D3 [[facility] [place] Cit 200 mg-D3 6.25 Mcg] 3 tab PO DAILY 05/04/23 [History] Docusate Sodium 100 mg [Docusate Sodium 100 MG] 100 mg PO BID 05/04/23 [History] Ferrous Sulfate 325 mg PO DAILY 05/04/23 [History] Folic Acid 1 mg [Folate 1 mg] 1 mg PO BID 05/04/23 [History] Magnesium Oxide 400 mg PO BID 05/04/23 [History] Multivitamin 1 each PO DAILY 05/04/23 [History] PANTOPRAZOLE 40 mg Tablet [Protonix 40MG Tablet] 40 mg PO BID 05/04/23 [History] Pramipexole Di-HCl [Pramipexole Dihydrochloride] 1.5 mg PO TID 05/04/23 [History] Sertraline HCl 50 mg [Zoloft 50 mg Tablet] 50 mg PO DAILY 05/04/23 [History] Tacrolimus [Prograf] 2 cap PO BID 05/04/23 [History] Tizanidine HCl [Zanaflex] 2 mg PO DAILY 05/04/23 [History] dilTIAZem HCL [Diltiazem ER] 240 mg PO DAILY 05/04/23 [History] Ezetimibe 10 mg [Zetia 10 MG] 10 mg PO HS 05/25/25 [History] Hydrocodone/Acetaminophen [Hydrocodone-Acetamin 10-325 mg] 1 tab PO TID PRN 05/25/25 [History] Lovaza 2 gm PO BID 05/25/25 [History] Potassium Chloride [Klor-Con M20] 20 meq PO BID 05/25/25 [History] Tirzepatide [Mounjaro] 10 mg SQ WEEKLY 05/25/25 [History] Torsemide [Soaanz] 40 mg PO DAILY 05/25/25 [History] mycophenolate mofetiL [Cellcept] 250 mg PO BID 05/25/25 [History] Hx Tetanus, Diphtheria Vaccination/Date Given: No Hx Influenza Vaccination/Date Given: Yes Hx Pneumococcal Vaccination/Date Given: No Travel Risk - Emerging Infectious Disease Are you exhibiting symptoms associated with any current EIDs: No - Review of Systems Constitutional: No Symptoms Eyes: No Symptoms Ears, Nose, & Throat: No Symptoms Respiratory: No Symptoms Cardiac: No Symptoms Abdominal/Gastrointestinal: No Symptoms Genitourinary Symptoms: No Symptoms Musculoskeletal: Joint Pain Skin: No Symptoms Neurological: No Symptoms - Past Medical History Pertinent Past Medical History: Yes Neurological History: No Pertinent History ENT History: No Pertinent History Cardiac History: No Pertinent History, Other Respiratory History: No Pertinent History Endocrine Medical History: No Pertinent History Musculoskeletal History: No Pertinent History, Osteoarthritis Other Medical History: PSH: HEART TRANSPLANT 2 YEARS AGO, R TKA, LAMINECTOMY LUMBAR REGION L4/5 - Past Surgical History Past Surgical History: Yes (UNKNOWN) Cardiac: Cardiac Catheterization, Cardiac Stent, Internal Defibrillator, Pacemaker Musculoskeletal: Joint Replacement Other Surgical History: LVAD, right total knee replacement, heart transplant - Social History Smoking Status: Former smoker How long have you smoked: 1 Exposure to second hand smoke: Yes Drug Use: none - Social Determinants of Health Will the patient participate in the screening: Yes Do you worry about a steady place to live?: No Do you have any problems with any of the following?: No known problems In the past 12 months,have you had to go without utilities?: No Transportation Issues: No Has anyone in your support network made you feel unsafe?: No Have you or anyone in your house had to go w/o enough food: No - Nursing Vital Signs Nursing Vital Signs: Initial Vital Signs Temperature 96.3 F 05/25/25 12:15 Pulse Rate 97 H 05/25/25 12:15 Respiratory Rate 18 05/25/25 12:15 Blood Pressure 129/84 05/25/25 12:15 O2 Sat by Pulse Oximetry 98 05/25/25 12:15 Pain Scale Pain Intensity 6 - Physical Exam General Appearance: no apparent distress Eye Exam: PERRL/EOMI Ears, Nose, Throat Exam: normal ENT inspection Respiratory Exam: normal breath sounds Cardiovascular Exam: regular rate/rhythm Gastrointestinal/Abdomen Exam: soft, normal bowel sounds Extremity Exam: tenderness (patient has soft tissue swelling and tenderness of the extensor surface of the forearm and wrist ), other (there is soft tissue edema and erythema to the flexor surface of the left hand and wrist with decreased ROM secondary to pain - he is neurovascularly intact distally ) SpO2: 98 Ordered Tests: Active Orders 24 hr Category Date Time Status FOREARM Stat Exams 05/25/25 12:42 Completed HAND (MINIMUM 3 VIEWS) Stat Exams 05/25/25 12:41 Completed Medication Summary Discontinued Medications Generic Name Dose Route Start Last Admin Trade Name Lelo PRN Reason Stop Dose Admin Hydrocodone Bitart/Acetaminophen 1 tab 05/25/25 12:41 05/25/25 13:33 Hydrocodone/Apap 5/325 1 Tab Tablet PO 05/25/25 12:42 1 tab STAT ONE Administration Hydrocodone Bitart/Acetaminophen Confirm 05/25/25 13:33 Hydrocodone/Apap 5/325 1 Tab Tablet Administered 05/25/25 13:34 Dose 1 tab .ROUTE .STK-MED ONE - Progress Progress Note: patient seen and evaluated for his complaints and x-rays were ordered - these revealed no acute findings he was updated with the results and informed of the need to follow up with his pMD and orthopedic surgeon - he will be discharged home with a splint and was instructed to apply ice and use motrin 05/25/25 12:45 05/25/25 14:31 Medical Desision Making - Discussion of managment Agreed on:: need for follow-up - Departure Departure Disposition: Home Clinical Impression: Contusion, hand, Contusion of forearm, left Condition: Stable Critical Care Time: No Referrals: REMEDIOS MARTIN [Primary Care Provider, INTERNAL MEDICINE] - Follow up/PCP as directed
[2025-05-25] MEDS ORDERED: NORCO 5/325 MG ONE (13:33)
[2025-05-25] MEDS: NORCO 5/325 MG PO ONE (13:33)
--- NOTE | 2025-05-25 13:59 | XRAY ---
Indication: Pain following fall. Comparison: None 2 view left forearm demonstrates tiny spurring coronoid process, tiny ulnar styloid heterotopic ossification, and moderate scattered vascular calcifications. No acute abnormalities.
--- NOTE | 2025-05-25 14:01 | XRAY ---
Indication: Pain following fall. Comparison: None 3 view left hand demonstrates old fracture proximal 5th metacarpal, minimal/mild degenerative changes all IP joints, moderate/advanced 1st metacarpal multangular scaphoid degenerative changes with tiny heterotopic ossification, and ulnar styloid tip heterotopic ossification. No acute abnormalities.
[2025-05-25 14:58] VITALS: BP 126/78; PULSE 85; RESP 20
== END 2025-05-25 14:59 | disposition home or self-care (01) ==
LOC: ED 12:15
DX: S60.222A Contusion of left hand, initial encounter (principal); S50.12XA Contusion of left forearm, initial encounter; W19.XXXA Unspecified fall, initial encounter; Z79.85 Long-term (current) use of injectable non-insulin antidiabetic drugs; Z79.899 Other long term (current) drug therapy